=== PATIENT | male | born 1950 | race Caucasian/White ===

== ENCOUNTER → 2019-07-21 | Outpatient (CLI) | payer BC ==
[2016-09-13 15:25] VITALS: BP 132/68
[~2019-07-21] MED LIST: ALPR0.5T PO; ASPI-630 PO; BUPIVACAINE MPF 0.25% 10 ML VIAL. ONE; CITA10TA4 PO; CITA40TA12 PO; HYDR-2679 PO; IOHEXOL 180 MG/ML 10 ML VIAL. ONE; methylPREDNISolone ACETATE 80 MG/ML VIAL. ONE
--- NOTE | 2019-07-21 22:11 | PAIN ---
DATE OF SERVICE: 07/21/2019 INITIAL CONSULTATION FOR PAIN CLINIC CHIEF COMPLAINT: Low back and right lower extremity pain. HISTORY OF PRESENT ILLNESS: The patient is a 68-year-old male who presents with history of pain since about a year ago, worse over the past to 7 weeks; however, with pain in the low back itself, especially in the low back on the right side with some radiating pain in the right anterior thigh, also some pain in the posterior thigh and into the posterior calf with numbness in the foot, occasionally only with extended walking and standing. There is no pain with sitting. Lying down is generally comfortable, does not awaken him from sleep at night, does not affect his bowel or bladder control, but does affect his ability to walk fairly significantly. The patient reports he really "over does it." His foot will go numb on the right side as well as calf. The patient had a Medrol Dosepak earlier, which did decrease the pain by about 75% temporarily. The patient reports the pain now is sharp with numbness in the leg is noted, but mostly in the right side in the low back, posterior hip. The patient has had a total hip replacement on that side and his recent evaluation with his orthopedic surgeon showing good alignment and no issues with the hip prosthesis. The patient rates his disability rating from 0-10, 10 being the worst, is a 1 with family home responsibilities, 7 with recreation and 0 in all other categories. The patient did have plain films showing some degenerative change of the sacroiliac joint as well as the lumbar spine in the low lumbar distribution. PAST MEDICAL HISTORY: Significant for arthritis, chemotherapy and radiation, status post testicular cancer, now in remission, cigar smoking. Previous coronary artery disease with stent placed in 1990. OTHER SURGERIES: Include a right hip total replacement and a testicular cancer, orchiectomy. CURRENT MEDICATIONS: Include Xanax and daily baby aspirin. ALLERGIES: The patient has no known drug allergies. FAMILY HISTORY: Significant for heart disease and cancer. SOCIAL HISTORY: The patient does not drink alcohol, does not use any illegal, illicit or recreational drugs, does smoke cigars up to 6 a day at times. He is and lives with his spouse, lives locally in [place], [place] and reports he is currently retired. REVIEW OF SYSTEMS: The patient's review of systems is positive for those items mentioned in history of present illness. All systems reviewed and otherwise negative. It is complete, full and well documented on the patient's chart. PHYSICAL EXAMINATION: VITAL SIGNS: The patient's blood pressure is 152/81, pulse 74, respirations 18, temperature 98.0 degrees Fahrenheit, height 6 feet, weight is 169 pounds. GENERAL: The patient is awake, alert, oriented, appropriate, very pleasant demeanor. HEENT: Head shows normocephalic, atraumatic. Extraocular movements are intact and symmetrical. Oral cavity: Mucous membranes moist and pink. Dentition is intact. NECK: Shows anterior throat supple without palpable lymphadenopathy noted. Swallow reflex symmetrical. CHEST: Shows normal on inspection. Breath sounds clear to auscultation bilaterally. HEART: Shows S1, S2 clear. No murmurs auscultated. ABDOMEN: Soft, nontender, nondistended. No palpable organomegaly is noted. No rebound or guarding demonstrated. BACK: Shows spine grossly in the midline. Normal appearing thoracic kyphosis and lumbar lordotic curvature. Lumbar paraspinous muscle shows symmetrical on inspection, with palpation shows some moderate tenderness diffusely, but without radiation. The patient has good rotational motion of lumbar spine, both laterally as well as extension and flexion without significant difficulty. The patient's spinous processes is nontender with palpation. With palpation over the posterior superior iliac spine on the right, there is significantly tender, especially at the superior aspect of the sacroiliac joint on the right side only. Left side is nontender, but without radiation on either side. EXTREMITIES: The patient's lower extremities show deep tendon reflexes 2+ in the patellar, 1+ tendo-calcaneus tendons are equal. Motor exam is strong with 5/5 dorsiflexion, extension, quadriceps and hamstring flexion and symmetrical bilaterally as well. Peripheral pulses are 1+ posterior tibia. No peripheral edema is noted. Lower extremities are warm and dry to touch, equal in color and appearance. Straight leg raise noted to be negative for reproduction of radicular symptoms bilaterally. The patient is able to stand, stand on his toes without difficulty, walks with a normal appearing gait, does not appear to favor the right or left lower extremity to a significant extent. SKIN: Shows warm and dry, good turgor. No edema. No sores, rashes or bruising throughout. IMPRESSION: 1. This is a 68-year-old male with a year history of low back pain on the right side, worse over the past 6-7 weeks consistent with right sacroiliitis, also with some radicular symptoms while on the right side. 2. Plain films of the spine and hip as noted. 3. Coronary artery disease. 4. Arthritis. 5. History of testicular cancer. PLAN: Options were discussed with the patient including conservative medical management, physical therapies, interventional techniques and he would like to pursue interventional techniques. We discussed a right sacroiliac joint injection using description as well as anatomical models to describe the procedure. Risks were then discussed including, but not limited to bleeding, infection, possibility of intravascular injection sequelae, spread of local anesthetic and numbness, side effects of steroid medication, exposure to fluoroscopy and poor results regarding pain control. The patient understands and wished to proceed. The patient will return to clinic in approximately 2 weeks for followup. She was counseled on return appointment, activity level and side effects to be aware of. DIAGNOSES: Right sacroiliitis. PROCEDURE: Right sacroiliac joint injection under sterile prep and drape using local anesthetic with C-arm fluoroscopic guidance. MEDICATIONS INJECTED: A total of 80 mg Depo-Medrol plus a total of 3 mL of 0.25% bupivacaine and 2 mL of contrast. CONDITION AT DISCHARGE: Stable. The patient tolerated the procedure well, had no complications. ALINE NAIDU MD DR: ANTONINO/pernell JOB#: [id number] / [id number] LORI Salgado MD
== END ==
LOC: PNCL 12:42
PROVIDERS: ATTEND Anesthesiology
DX: M46.1 Sacroiliitis, not elsewhere classified (principal); I25.10 Atherosclerotic heart disease of native coronary artery without angina pectoris; F17.210 Nicotine dependence, cigarettes, uncomplicated; Z87.39 Personal history of other diseases of the musculoskeletal system and connective tissue; Z85.47 Personal history of malignant neoplasm of testis; Z95.5 Presence of coronary angioplasty implant and graft
CPT/HCPCS: G0260; J1040; J3490; Q9965; 27096

== ENCOUNTER → 2019-07-30 | Outpatient (CLI) | payer BC ==
[2016-09-13 15:25] VITALS: BP 132/68
[~2019-07-30] MED LIST changes: -BUPIVACAINE MPF 0.25% 10 ML VIAL. ONE; +methylPREDNISolone ACETATE 40 MG/ML VIAL. ONE
--- NOTE | 2019-07-30 14:02 | PAIN ---
DATE OF SERVICE: 07/30/2019 PROGRESS NOTE FOR PAIN CLINIC DIAGNOSES: 1. Lumbar radiculopathy with lumbar degenerative disk disease. 2. Right sacroiliitis. HISTORY OF PRESENT ILLNESS: The patient is a 68-year-old male who returns for followup status post right sacroiliac joint injection after initial evaluation. The patient reports no significant improvement after the last injection, still significant pain radiating to the right lower extremity in a radicular fashion, mostly in L5 dermatomal distribution. The patient reports it is worse with walking, standing, changing positions, describes the pain as tight across the back, cramping and radiating and shooting into the right leg. The patient reports it is an 8 on a scale of 10 at its worst over the past week, 8 on average, 7 at its least and is a 7 today. The patient reports no new motor or sensory deficits, no new bowel or bladder incontinence. Still awaken him from sleep at night. PHYSICAL EXAMINATION: VITAL SIGNS: The patient's blood pressure 151/87, pulse 85, respirations are 18, temperature 97.6 degrees Fahrenheit, height is 6 feet, weight is 168 pounds. GENERAL: The patient is awake, alert, oriented, appropriate, very pleasant demeanor. HEENT: Shows normocephalic, atraumatic. Extraocular movements are intact and symmetrical. Oral cavity: Mucous membranes moist and pink. Dentition is intact. NECK: Shows anterior throat supple without palpable lymphadenopathy noted. Swallow reflex symmetrical. CHEST: Shows normal on inspection. Breath sounds clear to auscultation bilaterally. HEART: Shows S1, S2 clear. No murmurs auscultated. ABDOMEN: Soft, nontender, nondistended. No palpable organomegaly is noted. There is no rebound or guarding demonstrated. BACK: Shows spine grossly in the midline. Normal appearing thoracic kyphosis and lumbar lordotic curvature. Lumbar paraspinous muscle shows symmetrical on inspection, on palpation shows some moderate tenderness diffusely, but only diffusely without significant radiation. EXTREMITIES: The patient's lower extremities show deep tendon reflexes 2+ in the patellar, 1+ in tendo-calcaneus tendons. Motor exam is strong with 5/5 dorsiflexion, extension, quadriceps and hamstring flexion symmetrical bilaterally. Peripheral pulses are 1+ posterior tibia. No peripheral edema is noted bilaterally. Options were discussed with the patient. The patient's old chart was reviewed as his current medication regimen updated. Current review of systems updated today as well. We will proceed with a lumbar epidural steroid injection today with fluoroscopic guidance. Risks were again discussed including, but not limited to bleeding, infection, possibility of epidural hematoma, subsequent neurological compromise, dural puncture, headaches, spinal cord and/or nerve damage, side effects of steroid medication and poor results regarding pain control. The patient understands and wished to proceed. The patient will return to clinic in approximately 2 weeks for followup. He was counseled on return appointment, activity level and side effects to be aware of. DIAGNOSES: Lumbar radiculopathy with lumbar degenerative disk disease. PROCEDURE: Lumbar epidural steroid injection, translaminar approach L5-S1 level using C-arm fluoroscopic guidance under sterile prep and drape using local anesthetic. MEDICATION INJECTED: A total of 120 mg of Depo-Medrol plus 10 mL of preservative-free normal saline and 2 mL of contrast. CONDITION AT DISCHARGE: Stable. The patient tolerated the procedure well, had no complications. ALINE NAIDU MD DR: ANTONINO/pernell JOB#: [id number] / [id number]
== END ==
LOC: PNCL 13:04
PROVIDERS: ATTEND Anesthesiology
DX: M51.16 Intervertebral disc disorders with radiculopathy, lumbar region (principal); M46.1 Sacroiliitis, not elsewhere classified
CPT/HCPCS: 62323; J1030; J1040; Q9965

== ENCOUNTER → 2019-08-14 | Outpatient (CLI) | payer BC ==
[2016-09-13 15:25] VITALS: BP 132/68
[~2019-08-14] MED LIST changes: +ASPI81TA50 PO; -IOHEXOL 180 MG/ML 10 ML VIAL. ONE; -methylPREDNISolone ACETATE 40 MG/ML VIAL. ONE; -methylPREDNISolone ACETATE 80 MG/ML VIAL. ONE
--- NOTE | 2019-08-14 12:50 | KCIC ---
Right lower extremity venous duplex ultrasound study without comparison for right lower extremity swelling and pain. TECHNIQUE AND FINDINGS: Real-time grayscale and color and spectral Doppler evaluation of the veins of the right lower extremity is performed. The right common femoral, deep femoral, superficial femoral, and popliteal veins all demonstrate normal compressibility and augmentation with normal color flow. There is normal color flow within the posterior tibial veins. Peroneal veins are not well seen. Short saphenous vein is patent and compressible. IMPRESSION: 1. No evidence of deep vein thrombosis of the right lower extremity. Electronically signed by: Oswaldo Wright MD (08/14/2019 12:47 PM) [facility]
== END | disposition home or self-care (01) ==
LOC: KCIC US 12:01
PROVIDERS: ATTEND Family Medicine
DX: M79.604 Pain in right leg (principal); M79.89 Other specified soft tissue disorders
CPT/HCPCS: 93971

== ENCOUNTER → 2019-08-18 | Outpatient (CLI) | payer BC ==
[2016-09-13 15:25] VITALS: BP 132/68
--- NOTE | 2019-08-18 20:58 | PAIN ---
DATE OF SERVICE: 08/18/2019 PROGRESS NOTE FOR PAIN CLINIC DIAGNOSES: 1. Lumbar radiculopathy with lumbar degenerative disk disease. 2. Right sacroiliitis. HISTORY OF PRESENT ILLNESS: The patient is a 68-year-old male who returns for followup status post lumbar epidural steroid injection x 1 and right sacroiliac joint injection x 1. The patient reports no significant improvement with either of these, only minimal decrease in pain. The patient reports still significant pain in the right leg with walking, gets worse with walking and extended activity and once he sits down and rests, it is gone within 2 minutes. The patient reports his leg has been turning red in the medial thigh as well as in the medial lower leg and calf. He had recently had a venous ultrasound of his calf showing no blood clots, it was quite tender. When his primary care physician examined it about 2 weeks ago, the patient reports his pain is 7 on a scale of 10 at its worst, average and at its least and is a 7 today in the right lower extremity, some in the low back as well. The patient reports it does not awaken him from sleep at night. He is sleeping well. Only with activities, has the pain significant and again with some reddish color on the anterior medial thigh and the medial lower leg. PHYSICAL EXAMINATION: VITAL SIGNS: The patient's blood pressure is 129/81, pulse 93, respirations 18, temperature is 97.5 degrees Fahrenheit, weight is 167 pounds. Height is 6 feet. GENERAL: The patient is awake, alert, oriented, appropriate, very pleasant demeanor. HEENT: Shows normocephalic, atraumatic. Extraocular movements are intact and symmetrical. Oral cavity: Mucous membranes moist and pink. Dentition intact. NECK: Shows anterior throat supple without palpable lymphadenopathy noted. Swallow reflex symmetrical. CHEST: Shows normal on inspection. Breath sounds are clear bilaterally. HEART: Shows S1, S2 clear. No murmurs auscultated. ABDOMEN: Soft, nontender, nondistended. BACK: Shows spine grossly in the midline. Normal appearing thoracic kyphosis. Lumbar lordotic curvature is slightly flattened. Lumbar paraspinous muscle shows symmetrical on inspection with some moderate tenderness diffusely in the low lumbar distribution bilaterally, but more on the right than the left, but without asymmetry. The patient has good rotational motion of lumbar spine, both laterally as well as extension and flexion without difficulty. EXTREMITIES: Lower extremities show deep tendon reflexes 2+ in the patellar, 1+ tendo-calcaneus tendons. Motor exam is strong with 5/5 dorsiflexion, extension and equal bilaterally. Examination of the patient's peripheral pulses show no palpable pulse on the right posterior tibial or dorsalis pedis or popliteal region in the right. Left side shows good 2+ popliteal pulse as well as 1+ posterior tibial and dorsalis pedis pulses. No peripheral edema is noted. No significant discoloration is appreciated underneath though lower extremities are warm and dry to touch, equal in color and appearance. PLAN: Options were discussed with the patient. The patient's old chart was reviewed as his current medication regimen updated. Current review of systems updated today as well. We will have the patient scheduled for ultrasound of the arterial system of the lower extremities as he apparently by history and examination is having vascular claudication of the right lower extremity. The patient understands and agrees. We will schedule arterial evaluation of the bilateral lower extremities and wait for those results. In the meantime, the patient will maintain exercise as tolerated and will follow up after an arterial ultrasound of the lower complications. ALINE NAIDU MD DR: ANTONINO/pernell JOB#: [id number] / [id number]
== END | disposition home or self-care (01) ==
LOC: PNCL 13:10
PROVIDERS: ATTEND Anesthesiology
DX: M51.16 Intervertebral disc disorders with radiculopathy, lumbar region (principal); M46.1 Sacroiliitis, not elsewhere classified
CPT/HCPCS: G0463

== ENCOUNTER 2019-08-20 04:37 | Inpatient (IN) | payer BC ==
[~2019-08-20] VITALS: Ht 182.9 cm; Wt 78.0 kg
[2019-08-20 05:12] LABS: BASO # 0.1 x10^3/uL (0.0-0.2); BASO % 1 % (0-3); EOS # 0.2 x10^3/uL (0.0-0.7); EOS % 3 % (0-3); HEMATOCRIT 46.6 % (39.0-53.0); HEMOGLOBIN 16.4 g/dL (13.0-17.5); LYMPH # 1.8 x10^3/uL (1.0-4.8); LYMPH % 23 % (24-48); MEAN CORPUSCULAR HEMOGLOBIN 35 pg (25-35); MEAN CORPUSCULAR HGB CONC 35 g/dL (31-37); MEAN CORPUSCULAR VOLUME 100 fL (79-100); MONO # 0.7 x10^3/uL (0.0-1.1); MONO % 8 % (0-9); NEUT # 5.2 x10^3/uL (1.8-7.7); NEUT % 65 % (31-73); PLATELET COUNT 180 x10^3/uL (140-400); RED BLOOD COUNT 4.65 x10^6/uL (4.30-5.70); RED CELL DISTRIBUTION WIDTH 14.5 % (11.5-14.5)
[2019-08-20 05:18] LABS: CREATININE 1.1 mg/dL (0.7-1.3); POTASSIUM 3.7 mmol/L (3.5-5.1)
[2019-08-20 05:23] LABS: ALBUMIN 3.7 g/dL (3.4-5.0); ALBUMIN/GLOBULIN RATIO 1.1 (1.0-1.7); TOTAL BILIRUBIN 0.6 mg/dL (0.2-1.0); TOTAL PROTEIN 7.1 g/dL (6.4-8.2)
[2019-08-20 05:26] LABS: PROTHROMBIN TIME PATIENT 12.9 SEC (11.7-14.0)
[2019-08-20] MEDS ORDERED: ASPIRIN CHEWABLE 81 MG TABLET. PO ONE (05:30)
[2019-08-20] MEDS ORDERED: hydrALAZINE 20 MG/ML VIAL. IVP ONE (05:30)
--- NOTE | 2019-08-20 05:34 | PHYS DOC ---
Past Medical History Past Medical History: No Pertinent History (VAN CHAPA DO) Past Surgical History: Other Additional Past Surgical Histo: PTCA (VAN CHAPA DO) Alcohol Use: None Drug Use: None (VAN CHAPA DO) Adult General Chief Complaint Chief Complaint: CHEST PAIN HPI HPI Patient is a 68 year old male who presents with family to the ER with a chief complaint of left-sided chest pain. Patient describes the pain is in his left lower chest. Patient states that this woke him up around 2 hours prior to coming into the ER. Patient does admit to being an active smoker. Patient states that he did not have a cardiac evaluation for the past few years. Patient denies any radiation to his chest pain. Patient describes the pain as dull and achy. (VAN CHAPA DO) Review of Systems Review of Systems Constitutional: Denies fever or chills [] Eyes: Denies change in visual acuity, redness, or eye pain [] HENT: Denies nasal congestion or sore throat [] Respiratory: Denies cough or shortness of breath [] Cardiovascular: Complains of left-sided chest pain GI: Denies abdominal pain, nausea, vomiting, bloody stools or diarrhea [] : Denies dysuria or hematuria [] Musculoskeletal: Denies back pain or joint pain [] Integument: Denies rash or skin lesions [] Neurologic: Denies headache, focal weakness or sensory changes [] All other systems were reviewed and found to be within normal limits, except as documented in this note. (VAN CHAPA DO) Current Medications Current Medications Current Medications Medications (Trade) Dose Ordered Sig/Mady Start Time Stop Time Status Last Admin Dose Admin Aspirin (Children'S Aspirin) 324 mg 1X ONCE 08/20/19 05:30 08/20/19 05:31 DC 08/20/19 05:14 324 MG Hydralazine HCl (Apresoline Inj) 10 mg 1X ONCE 08/20/19 05:30 08/20/19 05:31 DC 08/20/19 05:28 10 MG Info (CONTRAST GIVEN -- Rx MONITORING) 1 each PRN DAILY PRN 08/20/19 06:00 08/22/19 05:59 Iohexol (Omnipaque 300 Mg/ml) 75 ml 1X ONCE 08/20/19 06:00 08/20/19 06:01 DC 08/20/19 05:55 75 ML (SETH RICHMOND Jr., DO) Allergies Allergies Allergies Coded Allergies Type Severity Reaction Last Updated Verified No Known Drug Allergies 09/11/16 No (SETH RICHMOND Jr., DO) Physical Exam Physical Exam Constitutional: Well developed, well nourished, no acute distress, non-toxic appearance. [] HENT: Normocephalic, atraumatic Eyes: PERRLA, EOMI Neck: Normal range of motion, no tenderness, supple, no stridor. [] Cardiovascular:Heart rate regular rhythm, no murmur [] Lungs & Thorax: Bilateral breath sounds clear to auscultation [] Abdomen: Bowel sounds normal, soft, no tenderness Skin: Warm, dry, no erythema, no rash. [] Back: No tenderness, no CVA tenderness. [] Extremities: No tenderness, no cyanosis, no clubbing, ROM intact Neurologic: Alert and oriented X 3, normal motor function, normal sensory function, no focal deficits noted. [] Psychologic: Affect normal, judgement normal, mood normal. [] (VAN CHAPA DO) Current Patient Data Vital Signs Vital Signs Date Time Temp Pulse Resp B/P (MAP) Pulse Ox O2 Delivery O2 Flow Rate FiO2 08/20/19 06:01 72 23 163/78 (106) 94 Room Air (SETH RICHMOND Jr., DO) Lab Values Laboratory Tests Test 08/20/19 04:50 White Blood Count 8.0 x10^3/uL (4.0-11.0) Red Blood Count 4.65 x10^6/uL (4.30-5.70) Hemoglobin 16.4 g/dL (13.0-17.5) Hematocrit 46.6 % (39.0-53.0) Mean Corpuscular Volume 100 fL (79-100) Mean Corpuscular Hemoglobin 35 pg (25-35) Mean Corpuscular Hemoglobin Concent 35 g/dL (31-37) Red Cell Distribution Width 14.5 % (11.5-14.5) Platelet Count 180 x10^3/uL (140-400) Neutrophils (%) (Auto) 65 % (31-73) Lymphocytes (%) (Auto) 23 % (24-48) L Monocytes (%) (Auto) 8 % (0-9) Eosinophils (%) (Auto) 3 % (0-3) Basophils (%) (Auto) 1 % (0-3) Neutrophils # (Auto) 5.2 x10^3/uL (1.8-7.7) Lymphocytes # (Auto) 1.8 x10^3/uL (1.0-4.8) Monocytes # (Auto) 0.7 x10^3/uL (0.0-1.1) Eosinophils # (Auto) 0.2 x10^3/uL (0.0-0.7) Basophils # (Auto) 0.1 x10^3/uL (0.0-0.2) Prothrombin Time 12.9 SEC (11.7-14.0) Prothrombin Time INR 1.0 (0.8-1.1) Sodium Level 143 mmol/L (136-145) Potassium Level 3.7 mmol/L (3.5-5.1) Chloride Level 108 mmol/L (98-107) H Carbon Dioxide Level 29 mmol/L (21-32) Anion Gap 6 (6-14) Blood Urea Nitrogen 23 mg/dL (8-26) Creatinine 1.1 mg/dL (0.7-1.3) Estimated GFR (Cockcroft-Gault) 67.0 BUN/Creatinine Ratio 21 (6-20) H Glucose Level 112 mg/dL (70-99) H Calcium Level 9.0 mg/dL (8.5-10.1) Total Bilirubin 0.6 mg/dL (0.2-1.0) Aspartate Amino Transferase (AST) 27 U/L (15-37) Alanine Aminotransferase (ALT) 38 U/L (16-63) Alkaline Phosphatase 106 U/L (46-116) Troponin I Quantitative < 0.017 ng/mL (0.000-0.055) OJ-Lmf-K-Type Natriuretic Peptide 378 pg/mL (0-124) H Total Protein 7.1 g/dL (6.4-8.2) Albumin 3.7 g/dL (3.4-5.0) Albumin/Globulin Ratio 1.1 (1.0-1.7) Lipase 1018 U/L (73-393) H Laboratory Tests 08/20/19 04:50 Laboratory Tests 08/20/19 04:50 (SETH RICHMOND Jr., DO) EKG EKG EKG interpretation: HR: 90 Sinus rhythm Regular intervals Normal axis Non specific ST changes most notably in the lateral leads V3 V4 and V5. (VAN CHAPA DO) Radiology/Procedures Radiology/Procedures Ordered chest x-ray. Ordered CT abdomen and pelvis with IV contrast (VAN CHAPA DO) Radiology/Procedures PROCEDURE: CT ABD PELV W/ IV CONTRST ONLY PQRS Compliance statement: One or more of the following individualized dose reduction techniques were utilized for this examination: 1. Automated exposure control. 2. Adjustment of the mA and/or kV according to patient size. 3. Use of iterative reconstruction technique. Indication:Elevated lipase. Abdominal pain. TECHNIQUE: CT abdomen and pelvis with IV contrast with multiplanar reformats. COMPARISON: None FINDINGS: Heart is normal in size. No pericardial or pleural effusion. Clear lung bases. Too small to characterize low attenuating lesion in segment 7 likely simple cysts. Spleen, gallbladder, pancreas, adrenals within normal limits. Large simple cyst in the left kidney measuring 8.7 cm. 4.6 x 3.9 cm partially exophytic enhancing solid lesion in the right kidney. Nonobstructing 3 mm left renal stone. No free pelvic fluid or ascites. No enlarged retroperitoneal or pelvic adenopathy. Infrarenal abdominal aortic aneurysm measuring 3.4 cm with thick eccentric mural plaque. The prostate and seminal vesicles show no large mass. Sigmoid diverticulosis. No bowel obstruction. No suspicious bony lesion. No suspicious bony lesion. IMPRESSION: 1. No pancreatic or peripancreatic inflammatory changes. 2. Punctate nonobstructing left renal stone. 3. Right renal mass, renal cell carcinoma until proven otherwise. 4. Infrarenal abdominal aortic aneurysm. Electronically signed by: Jayesh Barros DO (08/20/2019 6:11 AM) [facility] DICTATED and SIGNED BY: JAYESH BARROS DO DATE: 08/20/19610 (SETH RICHMOND Jr., DO) Impressions: 6 x-ray shows no acute disease. (VAN CHAPA DO) Course & Med Decision Making Course & Med Decision Making Pertinent Labs and Imaging studies reviewed. (See chart for details) Ordered labs, chest x-ray, EKG, IV, aspirin EKG does not show any acute changes. Chest x-ray does not show any acute disease. Labs are within normal limits except lipase which is 1018. Ordered CT of the abdomen and pelvis with IV contrast Patient's blood pressures elevated and so he is given hydralazine 10 mg IV. Patient care turned over to Dr Richmond at shift change. Pt will be admitted. Chest Pain vs Pancreatitis. (SAMMIVAN José Antonio CHAPMAN) Dragon Disclaimer Dragon Disclaimer This electronic medical record was generated, in whole or in part, using a voice recognition dictation system. (SAMMIVANWERNER Chou DO) Departure Departure Impression: Primary Impression: Chest pain Additional Impressions: Pancreatitis Right renal mass Disposition: ADMITTED INPATIENT Admitting Physician: Rajesh Koehler (SETH RICHMOND Jr. DO) Condition: IMPROVED Referrals: RAJESH KOEHLER MD (PCP) Problem Qualifiers Primary Impression: Chest pain Chest pain type: unspecified Qualified Codes: R07.9 - Chest pain, unspecified Additional Impressions: Pancreatitis Chronicity: acute Pancreatitis type: unspecified pancreatitis type Acute pancreatitis complication: unspecified Qualified Codes: K85.90 - Acute pancreatitis without necrosis or infection, unspecified VAN CHAPA DO Aug 20, 2019 05:34 SETH RICHMOND Jr., DO Aug 20, 2019 06:30
--- NOTE | 2019-08-20 05:36 | RAD ---
PROCEDURE: PORTABLE CHEST 1V CLINICAL INDICATION: Chest pain. COMPARISON: None FINDINGS: No pneumothorax identified. Cardiac and mediastinal contours unremarkable. No pulmonary consolidation or acute airspace disease. No acute osseous abnormalities identified. IMPRESSION: No pulmonary consolidation or acute airspace disease. Electronically signed by: Jayesh Barros DO (08/20/2019 5:33 AM) [facility]
[2019-08-20] MEDS ORDERED: CONTRAST GIVEN. MC PRN (06:00)
[2019-08-20] MEDS ORDERED: IOHEXOL 300 MG/ML 100ML VIAL. IV ONE (06:00)
--- NOTE | 2019-08-20 06:14 | RAD ---
PQRS Compliance statement: One or more of the following individualized dose reduction techniques were utilized for this examination: 1. Automated exposure control. 2. Adjustment of the mA and/or kV according to patient size. 3. Use of iterative reconstruction technique. Indication:Elevated lipase. Abdominal pain. TECHNIQUE: CT abdomen and pelvis with IV contrast with multiplanar reformats. COMPARISON: None FINDINGS: Heart is normal in size. No pericardial or pleural effusion. Clear lung bases. Too small to characterize low attenuating lesion in segment 7 likely simple cysts. Spleen, gallbladder, pancreas, adrenals within normal limits. Large simple cyst in the left kidney measuring 8.7 cm. 4.6 x 3.9 cm partially exophytic enhancing solid lesion in the right kidney. Nonobstructing 3 mm left renal stone. No free pelvic fluid or ascites. No enlarged retroperitoneal or pelvic adenopathy. Infrarenal abdominal aortic aneurysm measuring 3.4 cm with thick eccentric mural plaque. The prostate and seminal vesicles show no large mass. Sigmoid diverticulosis. No bowel obstruction. No suspicious bony lesion. No suspicious bony lesion. IMPRESSION: 1. No pancreatic or peripancreatic inflammatory changes. 2. Punctate nonobstructing left renal stone. 3. Right renal mass, renal cell carcinoma until proven otherwise. 4. Infrarenal abdominal aortic aneurysm. Electronically signed by: Jayesh Barros DO (08/20/2019 6:11 AM) [id number]
[2019-08-20 06:41] LABS: BILIRUBIN,URINE NEGATIVE (NEG); CLARITY,URINE CLEAR; COLOR,URINE YELLOW; NITRITE,URINE NEGATIVE (NEG); PROTEIN,URINE NEGATIVE (NEG-TRACE); UROBILINOGEN,URINE 0.2 mg/dL (0.2 mg/dL)
[2019-08-20] MEDS ORDERED: MORPHINE SULFATE 2 MG/ML VIAL. IV PRN (06:45)
[2019-08-20] MEDS ORDERED: ONDANSETRON PF 4 MG/2 ML VIAL. IV PRN (06:45)
[2019-08-20 06:53] LABS: BACTERIA,URINE 0 /HPF (0-FEW); RBC,URINE 0 /HPF (0-2); SQUAMOUS EPITHELIAL CELL,UR OCC /LPF; WBC,URINE 0 /HPF (0-4)
--- NOTE | 2019-08-20 06:53 | EKG ---
[address] [place] [address] Test Date: 2019-08-20 Test Time: 04:40:29 Pat Name: KAYCE PALOMINO Department: Room: Gender: M Turn Down Man: : 1950 Requested By: VAN CHAPA Order Number: [id number] Reading MD: Sandip Leong MD Measurements Intervals [place] Rate: 89 P: 59 OR: 158 QRS: 80 QRSD: 108 T: 65 QT: 364 QTc: 449 Interpretive Statements SINUS RHYTHM Electronically Signed On 09-07-2019 8:14:34 INSPECTOR CONVEYOR LINE by Sandip Leong MD
[2019-08-20] MEDS ORDERED: IV NORMAL SALINE 1000ML BAG 1,000 ML IV SCH (07:00)
[2019-08-20 08:00] VITALS: BP 218/101
[2019-08-20] MEDS ORDERED: HYDROcodone/APAP 7.5/325MG 1 TAB TABLET PO PRN (08:15)
[2019-08-20] MEDS ORDERED: hydrALAZINE 20 MG/ML VIAL. IVP PRN (08:45)
--- NOTE | 2019-08-20 08:47 | PDOC1 ---
History and Physical Date of Admission Date of Admission 08/20/19 Identification/Chief Complaint Chief Complaint chest pain Source Source: Chart review, Patient History of Present Illness History of Present Illness He came in due to left sided chest pain, has a CAD hx with stent placement yrs ago by Dr. Ernst, found to be hypertensive but EKG, troponin unremarkable, lipase elevated but not tender in area of pancreas and CT imaging did not show pancreatic issues but did not what is likely a renal cell cancer and an infrarenal aneurysm. He has been in to see Dr. De Dios recently for back/right leg pain and has arterial flow study set up as OP of right leg Past Medical History Cardiovascular: CAD, HTN, [place], Hyperlipidemia Pulmonary: Bronchitis GI: GERD Heme/Onc: Cancer Hepatobiliary: No pertinent hx Psych: Anxiety, Depression Rheumatologic: Other (OA) Renal/: Prostate Ca. (cancer) Past Surgical History Past Surgical History: Total hip replacement, Other (orchiectomy) Social History Smoke: <1 pack per day ALCOHOL: none Drugs: None Current Problem List Problem List Problems Medical Problems: (1) Chest pain Status: Acute (2) Pancreatitis Status: Acute (3) Right renal mass Status: Acute Current Medications Current Medications Current Medications Medications (Trade) Dose Ordered Sig/Mady Start Time Stop Time Status Last Admin Dose Admin Acetaminophen/ Hydrocodone Bitart (Lortab 7.5/325) 1 tab PRN Q6HRS PRN 08/20/19 08:15 Alprazolam (Xanax) 0.5 mg QID 08/20/19 09:00 Aspirin (Children'S Aspirin) 324 mg 1X ONCE 08/20/19 05:30 08/20/19 05:31 DC 08/20/19 05:14 324 MG Aspirin (Ecotrin) 162 mg DAILY 08/20/19 09:00 Citalopram Hydrobromide (CeleXA) 40 mg DAILY 08/20/19 09:00 Hydralazine HCl (Apresoline Inj) 10 mg 1X ONCE 08/20/19 05:30 08/20/19 05:31 DC 08/20/19 05:28 10 MG Info (CONTRAST GIVEN -- Rx MONITORING) 1 each PRN DAILY PRN 08/20/19 06:00 08/22/19 05:59 Iohexol (Omnipaque 300 Mg/ml) 75 ml 1X ONCE 08/20/19 06:00 08/20/19 06:01 DC 08/20/19 05:55 75 ML Morphine Sulfate (Morphine Sulfate) 2 mg PRN Q2HR PRN 08/20/19 06:45 08/21/19 06:44 Ondansetron HCl (Zofran) 4 mg PRN Q8HRS PRN 08/20/19 06:45 08/21/19 06:44 Sodium Chloride 1,000 ml @ 125 mls/hr Q8H 08/20/19 07:00 08/21/19 06:59 Allergies Allergies Allergies Coded Allergies Type Severity Reaction Last Updated Verified No Known Drug Allergies 09/11/16 No ROS Review of System CONSTITUTIONAL: No fever or chills EYES: No recent changes SKIN: No rash or itching CARDIOVASCULAR: see HPI RESPIRATORY: No SOB or cough GASTROINTESTINAL: No nausea, vomiting or abdominal pain NEUROLOGICAL: No headaches or weakness ENDOCRINE: No cold or heat intolerance GENITOURINARY: No urgency or frequency of urination MUSCULOSKELETAL: + back pain and right hip joint/leg pain LYMPHATICS: No enlarged lymph nodes PSYCHIATRIC: controlled anxiety & depression Physical Exam Physical Exam GEN.: No apparent distress. Alert and oriented. HEENT: Head is normocephalic, atraumatic NECK: Supple. LUNGS: Clear to auscultation. HEART: RRR, S1, S2 present. Peripheral pulses diminished right foot ABDOMEN: Soft, nontender. Positive bowel sounds. EXTREMITIES: Without any cyanosis. NEUROLOGIC: Normal speech, normal tone PSYCHIATRIC: Normal affect, normal mood. SKIN: No ulcerations Vitals Vitals Vital Signs Date Time Temp Pulse Resp B/P (MAP) Pulse Ox O2 Delivery O2 Flow Rate FiO2 08/20/19 08:00 74 20 218/101 (140) 96 Room Air Labs Labs Laboratory Tests Test 08/20/19 04:50 08/20/19 06:30 White Blood Count 8.0 x10^3/uL (4.0-11.0) Red Blood Count 4.65 x10^6/uL (4.30-5.70) Hemoglobin 16.4 g/dL (13.0-17.5) Hematocrit 46.6 % (39.0-53.0) Mean Corpuscular Volume 100 fL (79-100) Mean Corpuscular Hemoglobin 35 pg (25-35) Mean Corpuscular Hemoglobin Concent 35 g/dL (31-37) Red Cell Distribution Width 14.5 % (11.5-14.5) Platelet Count 180 x10^3/uL (140-400) Neutrophils (%) (Auto) 65 % (31-73) Lymphocytes (%) (Auto) 23 % (24-48) Monocytes (%) (Auto) 8 % (0-9) Eosinophils (%) (Auto) 3 % (0-3) Basophils (%) (Auto) 1 % (0-3) Neutrophils # (Auto) 5.2 x10^3/uL (1.8-7.7) Lymphocytes # (Auto) 1.8 x10^3/uL (1.0-4.8) Monocytes # (Auto) 0.7 x10^3/uL (0.0-1.1) Eosinophils # (Auto) 0.2 x10^3/uL (0.0-0.7) Basophils # (Auto) 0.1 x10^3/uL (0.0-0.2) Prothrombin Time 12.9 SEC (11.7-14.0) Prothromb Time International Ratio 1.0 (0.8-1.1) Sodium Level 143 mmol/L (136-145) Potassium Level 3.7 mmol/L (3.5-5.1) Chloride Level 108 mmol/L (98-107) Carbon Dioxide Level 29 mmol/L (21-32) Anion Gap 6 (6-14) Blood Urea Nitrogen 23 mg/dL (8-26) Creatinine 1.1 mg/dL (0.7-1.3) Estimated GFR (Cockcroft-Gault) 67.0 BUN/Creatinine Ratio 21 (6-20) Glucose Level 112 mg/dL (70-99) Calcium Level 9.0 mg/dL (8.5-10.1) Total Bilirubin 0.6 mg/dL (0.2-1.0) Aspartate Amino Transf (AST/SGOT) 27 U/L (15-37) Alanine Aminotransferase (ALT/SGPT) 38 U/L (16-63) Alkaline Phosphatase 106 U/L (46-116) Troponin I Quantitative < 0.017 ng/mL (0.000-0.055) MZ-Sko-N-Type Natriuretic Peptide 378 pg/mL (0-124) Total Protein 7.1 g/dL (6.4-8.2) Albumin 3.7 g/dL (3.4-5.0) Albumin/Globulin Ratio 1.1 (1.0-1.7) Lipase 1018 U/L (73-393) Urine Collection Type Unknown Urine Color Yellow Urine Clarity Clear Urine pH 6.0 Urine Specific [place] 1.025 Urine Protein Negative mg/dL (NEG-TRACE) Urine Glucose (UA) Negative mg/dL (NEG) Urine Ketones (Stick) Negative mg/dL (NEG) Urine Blood Negative (NEG) Urine Nitrite Negative (NEG) Urine Bilirubin Negative (NEG) Urine Urobilinogen Dipstick 0.2 mg/dL (0.2 mg/dL) Urine Leukocyte Esterase Negative (NEG) Urine RBC 0 /HPF (0-2) Urine WBC 0 /HPF (0-4) Urine Squamous Epithelial Cells Occ /LPF Urine Bacteria 0 /HPF (0-FEW) Laboratory Tests Test 08/20/19 04:50 08/20/19 06:30 White Blood Count 8.0 x10^3/uL (4.0-11.0) Red Blood Count 4.65 x10^6/uL (4.30-5.70) Hemoglobin 16.4 g/dL (13.0-17.5) Hematocrit 46.6 % (39.0-53.0) Mean Corpuscular Volume 100 fL (79-100) Mean Corpuscular Hemoglobin 35 pg (25-35) Mean Corpuscular Hemoglobin Concent 35 g/dL (31-37) Red Cell Distribution Width 14.5 % (11.5-14.5) Platelet Count 180 x10^3/uL (140-400) Neutrophils (%) (Auto) 65 % (31-73) Lymphocytes (%) (Auto) 23 % (24-48) Monocytes (%) (Auto) 8 % (0-9) Eosinophils (%) (Auto) 3 % (0-3) Basophils (%) (Auto) 1 % (0-3) Neutrophils # (Auto) 5.2 x10^3/uL (1.8-7.7) Lymphocytes # (Auto) 1.8 x10^3/uL (1.0-4.8) Monocytes # (Auto) 0.7 x10^3/uL (0.0-1.1) Eosinophils # (Auto) 0.2 x10^3/uL (0.0-0.7) Basophils # (Auto) 0.1 x10^3/uL (0.0-0.2) Prothrombin Time 12.9 SEC (11.7-14.0) Prothromb Time International Ratio 1.0 (0.8-1.1) Sodium Level 143 mmol/L (136-145) Potassium Level 3.7 mmol/L (3.5-5.1) Chloride Level 108 mmol/L (98-107) Carbon Dioxide Level 29 mmol/L (21-32) Anion Gap 6 (6-14) Blood Urea Nitrogen 23 mg/dL (8-26) Creatinine 1.1 mg/dL (0.7-1.3) Estimated GFR (Cockcroft-Gault) 67.0 BUN/Creatinine Ratio 21 (6-20) Glucose Level 112 mg/dL (70-99) Calcium Level 9.0 mg/dL (8.5-10.1) Total Bilirubin 0.6 mg/dL (0.2-1.0) Aspartate Amino Transf (AST/SGOT) 27 U/L (15-37) Alanine Aminotransferase (ALT/SGPT) 38 U/L (16-63) Alkaline Phosphatase 106 U/L (46-116) Troponin I Quantitative < 0.017 ng/mL (0.000-0.055) FW-Lwy-C-Type Natriuretic Peptide 378 pg/mL (0-124) Total Protein 7.1 g/dL (6.4-8.2) Albumin 3.7 g/dL (3.4-5.0) Albumin/Globulin Ratio 1.1 (1.0-1.7) Lipase 1018 U/L (73-393) Urine Collection Type Unknown Urine Color Yellow Urine Clarity Clear Urine pH 6.0 Urine Specific [place] 1.025 Urine Protein Negative mg/dL (NEG-TRACE) Urine Glucose (UA) Negative mg/dL (NEG) Urine Ketones (Stick) Negative mg/dL (NEG) Urine Blood Negative (NEG) Urine Nitrite Negative (NEG) Urine Bilirubin Negative (NEG) Urine Urobilinogen Dipstick 0.2 mg/dL (0.2 mg/dL) Urine Leukocyte Esterase Negative (NEG) Urine RBC 0 /HPF (0-2) Urine WBC 0 /HPF (0-4) Urine Squamous Epithelial Cells Occ /LPF Urine Bacteria 0 /HPF (0-FEW) Images Images CT abd/pelvis: Indication:Elevated lipase. Abdominal pain. TECHNIQUE: CT abdomen and pelvis with IV contrast with multiplanar reformats. COMPARISON: None FINDINGS: Heart is normal in size. No pericardial or pleural effusion. Clear lung bases. Too small to characterize low attenuating lesion in segment 7 likely simple cysts. Spleen, gallbladder, pancreas, adrenals within normal limits. Large simple cyst in the left kidney measuring 8.7 cm. 4.6 x 3.9 cm partially exophytic enhancing solid lesion in the right kidney. Nonobstructing 3 mm left renal stone. No free pelvic fluid or ascites. No enlarged retroperitoneal or pelvic adenopathy. Infrarenal abdominal aortic aneurysm measuring 3.4 cm with thick eccentric mural plaque. The prostate and seminal vesicles show no large mass. Sigmoid diverticulosis. No bowel obstruction. No suspicious bony lesion. No suspicious bony lesion. IMPRESSION: 1. No pancreatic or peripancreatic inflammatory changes. 2. Punctate nonobstructing left renal stone. 3. Right renal mass, renal cell carcinoma until proven otherwise. 4. Infrarenal abdominal aortic aneurysm. VTE Prophylaxis Ordered VTE Prophylaxis Devices: Yes VTE Pharmacological Prophylaxi: No Assessment/Plan Assessment/Plan chest pain - likely demand ischemia from hypertensive crisis - cardiology to see right renal mass - IR to eval for bx infrarenal aneurysm of abdominal aorta 3.4 cm - vascular to eval [facility] [place] 1990 with stent - previously followed by Dr. Ernst remote hx of testicular cancer, orchiectomy 30+ pack yr smoking hx abnormal lipase with normal pancreas on imaging and no palpable tenderness right leg pain with diminished pulse -arterial doppler was ordered as OP from recent office visit for 08/12/19 but apparently not done, recent venous doppler negative hx hyperlipidemia - not currently on meds, recheck FLP FARIDA/Depression hx - continue home meds Elizabeth CAIN MD Aug 20, 2019 08:47
[2019-08-20] MEDS: ASPIRIN ENTERIC COATED 81 MG TABLET.DR. PO SCH (09:00)
[2019-08-20] MEDS ORDERED: FLU VAX QS 2019-20 (36MOS+)/PF 0.5 ML SYRINGE. VAX IM ONE (09:00)
--- NOTE | 2019-08-20 09:17 | PDOC2 ---
CARDIAC CONSULT DATE OF CONSULT Date of Consult DATE: 08/20/19 TIME: 09:07 REASON FOR CONSULT Reason for Consult: Chest pain REFERRING PHYSICIAN Referring Physician: Basilio SOURCE Source: Chart review, Patient HISTORY OF PRESENT ILLNESS HISTORY OF PRESENT ILLNESS This is a pleasant 68 yo male admitted for complains of chest pain. He could not sleep last night due to pain. He described this as achy to left chest witho ut any associated symptoms of nausea/vomiting or SOA. No palpitations, frequent dizziness, PEGUERO. Denies any abdominal pain but has been having pain to his right leg mainly with walking. No hx of back issues. No recent falls or injury. Denies any frequent dizziness or passing out. Upon admission his BP was significantly high. He is known for CAD with remote PTCA and takes ASA but denies any BP meds. Denies any hx of renal disease. PAST MEDICAL HISTORY Cardiovascular: CAD Heme/Onc: Cancer (testicular) Psych: Anxiety, Depression Musculoskeletal: Osteoarthritis PAST SURGICAL HISTORY Past Surgical History: Total hip replacement, Other (orchiectomy) FAMILY HISTORY Family History noncontributory to CV SOCIAL HISTORY Smoke: <1 pack per day ALCOHOL: none Drugs: None Lives: with Family CURRENT MEDICATIONS CURRENT MEDICATIONS Current Medications Medications (Trade) Dose Ordered Sig/Mady Route PRN Reason Start Time Stop Time Status Last Admin Dose Admin Aspirin (Children'S Aspirin) 324 mg 1X ONCE PO 08/20/19 05:30 08/20/19 05:31 DC 08/20/19 05:14 Hydralazine HCl (Apresoline Inj) 10 mg 1X ONCE IVP 08/20/19 05:30 08/20/19 05:31 DC 08/20/19 05:28 Iohexol (Omnipaque 300 Mg/ml) 75 ml 1X ONCE IV 08/20/19 06:00 08/20/19 06:01 DC 08/20/19 05:55 ALLERGIES ALLERGIES: Coded Allergies: No Known Drug Allergies (Unverified , 09/11/16) ROS Review of System 14 point ROS evaluated with pertinent positives noted per HPI PHYSICAL EXAM General: Alert, Oriented X3, Cooperative, No acute distress HEENT: Atraumatic, Mucous membr. moist/pink Lungs: Clear to auscultation, Normal air movement Heart: Regular rate (SR), Normal S1, Normal S2, Other (S4; 3/6 systolic murmur to LLS border) Abdomen: Soft, No tenderness Extremities: No cyanosis, No edema Skin: No breakdown, No significant lesion Neuro: Normal speech, Sensation intact Psych/Mental Status: Mental status NL, Mood NL MUSCULOSKELETAL: Osteoarthritic changes both hands VITALS/I&O VITALS/I&O: Vital Signs Date Time Temp Pulse Resp B/P (MAP) Pulse Ox O2 Delivery O2 Flow Rate FiO2 08/20/19 08:00 74 20 218/101 (140) 96 Room Air LABS Lab: Laboratory Tests Test 08/20/19 04:50 08/20/19 06:30 White Blood Count 8.0 x10^3/uL (4.0-11.0) Red Blood Count 4.65 x10^6/uL (4.30-5.70) Hemoglobin 16.4 g/dL (13.0-17.5) Hematocrit 46.6 % (39.0-53.0) Mean Corpuscular Volume 100 fL (79-100) Mean Corpuscular Hemoglobin 35 pg (25-35) Mean Corpuscular Hemoglobin Concent 35 g/dL (31-37) Red Cell Distribution Width 14.5 % (11.5-14.5) Platelet Count 180 x10^3/uL (140-400) Neutrophils (%) (Auto) 65 % (31-73) Lymphocytes (%) (Auto) 23 % (24-48) L Monocytes (%) (Auto) 8 % (0-9) Eosinophils (%) (Auto) 3 % (0-3) Basophils (%) (Auto) 1 % (0-3) Neutrophils # (Auto) 5.2 x10^3/uL (1.8-7.7) Lymphocytes # (Auto) 1.8 x10^3/uL (1.0-4.8) Monocytes # (Auto) 0.7 x10^3/uL (0.0-1.1) Eosinophils # (Auto) 0.2 x10^3/uL (0.0-0.7) Basophils # (Auto) 0.1 x10^3/uL (0.0-0.2) Prothrombin Time 12.9 SEC (11.7-14.0) Prothrombin Time INR 1.0 (0.8-1.1) Sodium Level 143 mmol/L (136-145) Potassium Level 3.7 mmol/L (3.5-5.1) Chloride Level 108 mmol/L (98-107) H Carbon Dioxide Level 29 mmol/L (21-32) Anion Gap 6 (6-14) Blood Urea Nitrogen 23 mg/dL (8-26) Creatinine 1.1 mg/dL (0.7-1.3) Estimated GFR (Cockcroft-Gault) 67.0 BUN/Creatinine Ratio 21 (6-20) H Glucose Level 112 mg/dL (70-99) H Calcium Level 9.0 mg/dL (8.5-10.1) Total Bilirubin 0.6 mg/dL (0.2-1.0) Aspartate Amino Transferase (AST) 27 U/L (15-37) Alanine Aminotransferase (ALT) 38 U/L (16-63) Alkaline Phosphatase 106 U/L (46-116) Troponin I Quantitative < 0.017 ng/mL (0.000-0.055) OQ-Emo-A-Type Natriuretic Peptide 378 pg/mL (0-124) H Total Protein 7.1 g/dL (6.4-8.2) Albumin 3.7 g/dL (3.4-5.0) Albumin/Globulin Ratio 1.1 (1.0-1.7) Lipase 1018 U/L (73-393) H Urine Collection Type Unknown Urine Color Yellow Urine Clarity Clear Urine pH 6.0 Urine Specific [place] 1.025 Urine Protein Negative mg/dL (NEG-TRACE) Urine Glucose (UA) Negative mg/dL (NEG) Urine Ketones (Stick) Negative mg/dL (NEG) Urine Blood Negative (NEG) Urine Nitrite Negative (NEG) Urine Bilirubin Negative (NEG) Urine Urobilinogen Dipstick 0.2 mg/dL (0.2 mg/dL) Urine Leukocyte Esterase Negative (NEG) Urine RBC 0 /HPF (0-2) Urine WBC 0 /HPF (0-4) Urine Squamous Epithelial Cells Occ /LPF Urine Bacteria 0 /HPF (0-FEW) Laboratory Tests 08/20/19 04:50 Laboratory Tests 08/20/19 04:50 ASSESSMENT/PLAN ASSESSMENT/PLAN 1. Accelerated HTN: not on any regimen 2. Chest pain: possibly from above. inital trop nml. EKG no changes by c omparison. 3. Large right renal mass 4. Elevated lipase: no GI symptoms. Per PCP. 5. iAAA: 3.4 cm 6. Tobaccoism 7. CAD: PTCA 21 yrs ago 8. Hx of testicular CA with orchiectomy 9. RLE claudication pain Recommendations 1. TTE, lipids, TSH, RLE arterial duplex 2. Vascular and IR have been consulted 3. Norvasc, coreg. Statin per lipids. ASA Hydralazine IV 4. Smoking cessation 5. Will trend troponin and repeat EKG. Ischemic w/u is a consideration pending test and plans in regards to his renal mass. PRAVIN PAREKH MAIL CLERKS SUPERVISOR Aug 20, 2019 09:17
[2019-08-20 09:41] LABS: CHOLESTEROL/HDL RATIO 4.2
[2019-08-20] MEDS: CARVEDILOL 6.25 MG TABLET. PO SCH ×2 (09:44→16:21)
[2019-08-20] MEDS: ALPRAZolam 0.5 MG TABLET PO SCH ×4 (09:45→21:02)
[2019-08-20] MEDS: amLODIPine BESYLATE 10 MG TABLET PO SCH (09:45)
[2019-08-20] MEDS: CITALOPRAM 20 MG TABLET. PO SCH (09:46)
[2019-08-20 10:38] VITALS: BP 158/74
--- NOTE | 2019-08-20 10:48 | NUR ---
SS following for discharge planning. SS reviewed pt chart. Pt is from home with spouse and is currently on room air. No discharge needs noted at this time. SS will continue to follow for discharge planning.
--- NOTE | 2019-08-20 11:08 | EKG ---
[facility] [address] [place] [address] Test Date: 2019-08-20 Test Time: 12:07:28 Pat Name: KAYCE PALOMINO Department: Room: 206 1 Gender: M [employer] Department: : 1950 Requested By: PRAVIN PAREKH Order Number: [id number] Reading MD: Sandip Leong MD Measurements Intervals [place] Rate: 62 P: 59 MN: 160 QRS: 47 QRSD: 106 T: 28 QT: 448 QTc: 457 Interpretive Statements SINUS RHYTHM NON-SPECIFIC ST/T CHANGES Electronically Signed On 09-07-2019 8:16:46 FLOTATION OPERATOR by Sandip Leong MD
--- NOTE | 2019-08-20 12:58 | PDOC ---
Provider Note Provider Note IR NOTE Asked to review imaging on patient in regards to 5.3 cm enhancing partially cystic mass in the right kidney. Features are consistent with neoplasm, most commonly renal cell carcinoma. If patient is a surgical candidate, recommend urology consult prior to biopsy as this mass will likely require at least partial nephrectomy no matter what biopsy shows. Additionally biopsy of partially cystic lesions are generally of lower yield. If urology feels biopsy is needed, could perform after 5 days of holding aspirin. 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 BHASKAR MORENO MD Aug 20, 2019 12:58
--- NOTE | 2019-08-20 13:35 | CARD ---
MR#: [id number] Date of Study: 08/20/2019 Ordering Physician: Sandy CAIN, Referring Physician: Lizzette BARBOSA: Sultana Mckeon APPROVED REPORT EXAM: Two-dimensional and M-mode echocardiogram with Doppler and color Doppler. Other Information Quality : AverageHR: 59bpm INDICATION Chest Pain 2D DIMENSIONS RVDd2.3 (2.9-3.5cm)Left Atrium(2D)2.9 (1.6-4.0cm) IVSd1.2 (0.7-1.1cm)Aortic Root(2D)3.0 (2.0-3.7cm) LVDd5.4 (3.9-5.9cm)LVOT Diameter2.1 (1.8-2.4cm) PWd1.0 (0.7-1.1cm)LVDs3.9 (2.5-4.0cm) FS (%) 28.0 %SV75.1 ml LVEF(%)53.8 (>50%) Aortic Valve AoV Peak Alfredo.121.6cm/sAoV VTI22.1cm AO Peak GR.5.9mmHgLVOT Peak Alfredo.86.0cm/s LVOT VTI 17.05cmAO Mean GR.3mmHg BROOKS (VMAX)1.67ej2CKZ (VTI)2.76cm2 Mitral Valve MV E Vivboqnt39.4cm/sMV DECEL PIRR411iz MV A Kyuapqch30.9cm/sMV [id number] E/A Ratio0.9MVA (PHT)2.21cm2 TDI E/Lateral E'7.1E/Medial E'10.1 Pulmonary Valve PV Peak Igzaoaxv42.9cm/sPV Peak Grad.2mmHg Tricuspid Valve RAP [id number] Pulmonary Vein S1 Dpwfydxr89.8cm/sD2 Gkjabcbh11.9cm/s PVa [id number] LEFT VENTRICLE The left ventricle is normal size. There is borderline to mild concentric left ventricular hypertroph y. The ejection fraction is estimated at 55%. Basal inferior and posterior wall hypokinesis. Transmit ral Doppler flow pattern is Grade I-abnormal relaxation pattern. RIGHT VENTRICLE The right ventricle is normal size. There is normal right ventricular wall thickness. The right ventr icular systolic function is normal. ATRIA The left atrium size is normal. The right atrium size is normal. The interatrial septum is intact wit h no evidence for an atrial septal defect or patent foramen ovale as noted on 2-D or Doppler imaging. AORTIC VALVE The aortic valve is thickened but opens well. Doppler and Color Flow revealed no significant aortic r egurgitation. There is no significant aortic valvular stenosis. MITRAL VALVE The mitral valve is thickened but opens well. There is no evidence of mitral valve prolapse. There is no mitral valve stenosis. Doppler and Color-flow revealed trace mitral regurgitation. TRICUSPID VALVE The tricuspid valve is normal in structure and function. Doppler and Color Flow revealed trace tricus pid regurgitation. There is no tricuspid valve stenosis. PULMONIC VALVE The pulmonic valve is not well visualized. Doppler and Color Flow revealed no pulmonic valvular regur gitation. GREAT VESSELS The aortic root is normal in size. The ascending aorta is normal in size. The IVC is normal in size a nd collapses >50% with inspiration. PERICARDIAL EFFUSION There is no pleural effusion. There is no evidence of significant pericardial effusion. Critical Notification Critical Value: No <Conclusion> Basal inferior and posterior wall hypokinesis. The ejection fraction is estimated at 55%. Transmitral Doppler flow pattern is Grade I-abnormal relaxation pattern. Trace mitral regurgitation. Trace tricuspid regurgitation. There is no evidence of significant pericardial effusion. Signed by : Henry Felipe, Electronically Approved : 08/20/2019 13:34:50
--- NOTE | 2019-08-20 14:31 | NUR ---
PT NOT GIVEN SCHEDULED ASPIRIN THIS SHIFT DUE TO RECEIVING IN ER PRIOR TO COMING TO THE FLOOR. SPOKE WITH DR CAIN THIS MORNING AND FLUIDS NOT CONTINUED THIS WAS AN ER ORDER AND PT HAS HYPERTENSION.
[2019-08-20 14:48] VITALS: BP 172/78
--- NOTE | 2019-08-20 15:05 | NUR ---
SPOKE WITH PT REGARDING FLU VACCINE. PT WOULD LIKE TO TAKE ON DISCHARGE AND NOT AT THIS TIME. PT HAS BECOME MORE ANXIOUS AND REALLY WANTS TO GO HOME. EXPLAINED TO THE PT THAT HE HAS NOT BEEN SEEN BY ALL OF THE DR'S YET. LEFT MESSAGE FOR DR CAIN AT A APPROX 1500 SPOKE DIRECTLY TO STAFF REGARDING NICOTINE PATCH FOR THE PT AND PT WANTING TO GO HOME.
--- NOTE | 2019-08-20 15:09 | NUR ---
PT ADMITTED TO THE FLOOR AT APPROX 1510 VIA GURNEY FROM THE ER. FAMILY PRESENT UPON ADMISSION. PT ORIENTED TO ROOM, FLOOR AND STAFF. REPORT GIVEN BY SHANTAL IN THE ER.
[2019-08-20] MEDS: ISOSORBIDE MONONITRATE ER 30 MG TAB.ER.24H PO SCH (16:22)
[2019-08-20] MEDS: NICOTINE 21MG PATCH. TD SCH (16:27)
[2019-08-20 18:34] VITALS: BP 106/53
--- NOTE | 2019-08-20 19:37 | PDOC ---
Provider Note Provider Note (please see full dictation) 68 yo male presents with right leg pain for the last 5 months. He has pain and cramping in the lower leg with activity. Denies any pain at rest or ulcers. He was incidentally noted to have a right renal mass suspicious or renal cell CA. He has a remote history of testicular ca for which he had radiation. 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 Will need a formal CTA AARO to better evaluate the arterial occlusion. He will also need Urology evaluation to determine treatment of the renal mass before elective right leg revascularization. Urology evaluation can be done as outpatient if there is not available for inpatient evaluation. Will plan CTA tomorrow if Cr okay. SUSHILA RICHARDS MD Aug 20, 2019 19:37
--- NOTE | 2019-08-20 20:14 | CONS ---
DATE OF CONSULTATION: 08/20/2019 CHIEF COMPLAINT: Right leg pain. HISTORY OF PRESENT ILLNESS: The patient is a 68-year-old male with history of atherosclerotic heart disease, hypertension, and hyperlipidemia, who presents with several-month history of right leg pain. He notes onset of right calf pain with activity approximately 5 months ago. He denies any leg pain prior to this time. He notes pain in the right calf as well as a cramping sensation that starts after walking approximately a block. He denies any pain at rest. He denies any previous history of foot ulcers. He had some transient left chest wall pain earlier today, but this completely resolved. He thinks that he may have pulled a muscle yesterday. He states that this pain is different than when he had his heart attack many years ago. He has a remote history of testicular cancer for which he had abdominal and pelvic radiation. This was completed in around 1990. He denies any recent hematuria or dysuria. A CT of the abdomen and pelvis showed some ectasia or small aneurysm of the infrarenal aorta with mural thrombus. There is also incidental note of occlusion at the origin of the right common iliac artery that appeared to extend through the external iliac artery. There is some calcification of the arterial wall, but the left common and external iliac arteries were patent. This is on a standard CT scan. Artifact from his right hip prosthesis limited visualization of the right femoral artery. An ultrasound demonstrated blunted arterial waveforms starting in the common femoral artery extending distally consistent with arterial inflow disease. PAST MEDICAL HISTORY: 1. Coronary artery disease with previous myocardial infarction many years ago. 2. Hypertension. 3. Hyperlipidemia. 4. Gastroesophageal reflux disease. 5. Remote history of testicular cancer, status post orchiectomy and radiation therapy. PAST SURGICAL HISTORY: 1. Orchiectomy. 2. Right total hip arthroplasty. CURRENT MEDICATIONS: Atorvastatin 20 mg every day, Nicoderm patch 21 mcg, isosorbide mononitrate 30 mg every day, amlodipine 10 mg every day, Coreg 6.25 mg b.i.d., Celexa 40 mg every day, aspirin 162 mg every day, Xanax 0.5 mg q.i.d. ALLERGIES: No known drug allergies. SOCIAL HISTORY: He smokes approximately 8 small cigars a day. Denies any alcohol use or illicit drug use. FAMILY HISTORY: Denies any family history of aneurysms. REVIEW OF SYSTEMS: No recent fevers, chills, or shortness of breath. He had some left chest wall pain earlier today that has completely resolved. He has had similar pain that he has associated with pulling a muscle. He denies any nausea, vomiting, diarrhea, constipation, hematochezia, melena or other GI symptoms. No hematuria or dysuria. No significant abdominal pain. He notes right leg pain as described above. He denies any lower extremity swelling or areas of skin breakdown. He denies any unilateral weakness/numbness, vision loss, speech changes, or other TIA or stroke type symptoms. PHYSICAL EXAMINATION: GENERAL: This is a well-developed male, in no acute distress. VITAL SIGNS: Temperature 98.4, pulse 62, blood pressure 106/53, respirations 18. NECK: Supple, no lymphadenopathy. CARDIOVASCULAR: Regular rhythm. ABDOMEN: Soft, nontender, nondistended, no palpable masses. He has tattooing from previous radiation. EXTREMITIES: He has palpable radial, left femoral and left pedal pulses. His right femoral, popliteal, and pedal pulses are nonpalpable. He has no significant peripheral edema or areas of skin breakdown. NEUROLOGIC: He is awake, alert, answering all questions appropriately. He has equal upper and lower extremity strength. He has no focal deficits at this time. LABORATORY DATA: Significant for white blood cell 8.0, hemoglobin 16.4, platelet count of 180. INR 1.0. Sodium 143, potassium 3.7, BUN 23, creatinine 1.1, glucose 112. Liver function tests are unremarkable. BNP was 378, albumin 3.7. Lipase was 1018. His LDL cholesterol was 99 with total cholesterol of 158. CT of the abdomen showed no evidence of pancreatic or peripancreatic inflammatory changes. There is a right renal mass as noted above as well as a very large left renal simple cyst. There is a 3.4 cm infrarenal abdominal aortic aneurysm or ectasia with some mural thickening or plaque with occlusion of his right iliac system as noted above. IMPRESSION: 1. 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 2. Small infrarenal abdominal aortic aneurysm (3.4 cm). 3. Right renal mass suspicious for renal cell cancer. 4. Remote history of testicular cancer, status post abdominal and pelvic radiation. 5. Coronary artery disease (asymptomatic at this time). 6. Tobacco abuse. 7. Hypertension. RECOMMENDATIONS: 1. He will need further imaging with CT angiogram of the abdomen and bilateral lower extremities to better evaluate the extent of the arterial occlusion. 2. I discussed potential treatment options with him including aortobifemoral reconstruction versus femoral-femoral bypass. He may also be amenable to endovascular recannulization of the common and external iliac artery pending CT angiogram. Femoral-femoral bypass is most likely the best option in the face of his small infrarenal aneurysm and previous pelvic radiation and right renal cell cancer. We will determine final options once CT angiogram is available. 3. He will require Urology evaluation. If this is not available while inpatient, he may be discharged with outpatient followup with Urology. We would like to have a plan with regards to his renal mass prior to proceeding with elective right leg revascularization. I discussed this in detail with him. SUSHILA RICHARDS MD DR: BRENTON/pernell JOB#: [id number] / [id number] Elizabeth Kellogg MD, DONALD MD PARRA, MICHAEL MD
[2019-08-20] MEDS ORDERED: ATORVASTATIN CALCIUM 20 MG TABLET PO SCH (21:00)
[2019-08-20 23:01] VITALS: BP 123/64
[2019-08-21 03:46] VITALS: BP 144/70
[2019-08-21 03:55] LABS: CALCIUM 8.8 mg/dL (8.5-10.1); GFR 74.5; POTASSIUM 3.7 mmol/L (3.5-5.1)
[2019-08-21 07:00] VITALS: BP 181/86
[2019-08-21] MEDS ORDERED: CONTRAST GIVEN. MC PRN (08:15)
[2019-08-21] MEDS ORDERED: IOHEXOL 350 MG/ML 100 ML VIAL. IV ONE (08:15)
[2019-08-21] MEDS: ALPRAZolam 0.5 MG TABLET PO SCH ×3 (08:16→17:41)
--- NOTE | 2019-08-21 08:38 | NUR ---
Pt left the floor at approx 0830 for runoff. Respiratory dropped smoking cessation materials about that time. will spek to pt about them when he gets back to the floor.
--- NOTE | 2019-08-21 09:11 | RAD ---
EXAM: Right lower extremity arterial Doppler. HISTORY: Right lower extremity pain. Decreased pulses. COMPARISON: None. FINDINGS: Grayscale and Doppler analysis of the right lower extremity arterial system was performed. There are monophasic waveforms throughout the right lower extremity. The waveforms become more blunted within the popliteal artery and distally. There is slow postobstructive flow within the dorsalis pedis and distal posterior tibial arteries. IMPRESSION: 1. Significantly flow-limiting stenosis proximal to the common femoral artery. There is additional flow-limiting stenosis within the distal superficial femoral and trifurcation vessels. Electronically signed by: Lazaro Uriostegui MD (08/21/2019 9:09 AM) [facility]
--- NOTE | 2019-08-21 10:11 | PDOC ---
PROGRESS NOTES Subjective Subjective Patient seen and examined in room. Complains of right calf cramping with ambulation usually within one block. Resolves with rest. Objective Objective Vital Signs Date Time Temp Pulse Resp B/P (MAP) Pulse Ox O2 Delivery O2 Flow Rate FiO2 08/21/19 07:00 97.5 67 16 181/86 (117) 95 Nasal Cannula 97.5 Intake and Output 08/21/19 07:00 Intake Total 360 ml Output Total 650 ml Balance -290 ml Intake Oral 360 ml Output Urine Total 650 ml Physical Exam Physical Exam Awake and alert HRR Non-laobered respirations Abdomen soft, NTND Right foot warm, unable to palpate right femoral or distal pulses. Motor and sensation intact. Gait stable. Assessment Assessment Problems Medical Problems: (1) Chest pain Status: Acute (2) Pancreatitis Status: Acute (3) Right renal mass Status: Acute Plan Plan of Care Lower extremity ultrasound: There are monophasic waveforms throughout the right lower extremity. The waveforms become more blunted within the popliteal artery and distally. There is slow postobstructive flow within the dorsalis pedis and distal posterior tibial arteries. IMPRESSION: 1. Significantly flow-limiting stenosis proximal to the common femoral artery. There is additional flow-limiting stenosis within the distal superficial femoral and trifurcation vessels. 68 yo male presents with right leg pain for the last 5 months. He has pain and cramping in the lower leg with activity. Denies any pain at rest or ulcers. He was incidentally noted to have a right renal mass suspicious or renal cell CA. He has a remote history of testicular cancer for which he had radiation. He has an occluded right common and external iliac artery with significantly flow limiting stenosis to the common femoral and flow limiting stenosis within SFA and trifurcation vessels. CTA results pending. He will also need Urology evaluation to determine treatment of the renal mass before elective right leg revascularization. Urology evaluation can be done as outpatient if there is not available for inpatient evaluation. Recommend this be arranged prior to discharge. We will plan follow up with patient as an outpatient. Discussed plan of care with patient and he expresses understanding. Recommend continued lifestyle modifications to include daily aspirin, statin therapy and smoking cessation. Discussed walking program with patient. Comment Review of Relevant I have reviewed the following items jono (where applicable) has been applied. Labs Laboratory Tests Test 08/20/19 04:50 08/20/19 06:30 08/20/19 09:30 08/20/19 12:30 White Blood Count 8.0 x10^3/uL (4.0-11.0) Red Blood Count 4.65 x10^6/uL (4.30-5.70) Hemoglobin 16.4 g/dL (13.0-17.5) Hematocrit 46.6 % (39.0-53.0) Mean Corpuscular Volume 100 fL (79-100) Mean Corpuscular Hemoglobin 35 pg (25-35) Mean Corpuscular Hemoglobin Concent 35 g/dL (31-37) Red Cell Distribution Width 14.5 % (11.5-14.5) Platelet Count 180 x10^3/uL (140-400) Neutrophils (%) (Auto) 65 % (31-73) Lymphocytes (%) (Auto) 23 % (24-48) Monocytes (%) (Auto) 8 % (0-9) Eosinophils (%) (Auto) 3 % (0-3) Basophils (%) (Auto) 1 % (0-3) Neutrophils # (Auto) 5.2 x10^3/uL (1.8-7.7) Lymphocytes # (Auto) 1.8 x10^3/uL (1.0-4.8) Monocytes # (Auto) 0.7 x10^3/uL (0.0-1.1) Eosinophils # (Auto) 0.2 x10^3/uL (0.0-0.7) Basophils # (Auto) 0.1 x10^3/uL (0.0-0.2) Prothrombin Time 12.9 SEC (11.7-14.0) Prothromb Time International Ratio 1.0 (0.8-1.1) Sodium Level 143 mmol/L (136-145) Potassium Level 3.7 mmol/L (3.5-5.1) Chloride Level 108 mmol/L (98-107) Carbon Dioxide Level 29 mmol/L (21-32) Anion Gap 6 (6-14) Blood Urea Nitrogen 23 mg/dL (8-26) Creatinine 1.1 mg/dL (0.7-1.3) Estimated GFR (Cockcroft-Gault) 67.0 BUN/Creatinine Ratio 21 (6-20) Glucose Level 112 mg/dL (70-99) Calcium Level 9.0 mg/dL (8.5-10.1) Total Bilirubin 0.6 mg/dL (0.2-1.0) Aspartate Amino Transf (AST/SGOT) 27 U/L (15-37) Alanine Aminotransferase (ALT/SGPT) 38 U/L (16-63) Alkaline Phosphatase 106 U/L (46-116) Troponin I Quantitative < 0.017 ng/mL (0.000-0.055) 0.059 ng/mL (0.000-0.055) 0.058 ng/mL (0.000-0.055) DF-Iaa-J-Type Natriuretic Peptide 378 pg/mL (0-124) Total Protein 7.1 g/dL (6.4-8.2) Albumin 3.7 g/dL (3.4-5.0) Albumin/Globulin Ratio 1.1 (1.0-1.7) Triglycerides Level 103 mg/dL (0-150) Cholesterol Level 158 mg/dL (0-200) LDL Cholesterol, Calculated 99 mg/dL (0-100) VLDL Cholesterol, Calculated 21 mg/dL (0-40) Non-HDL Cholesterol Calculated 120 mg/dL (0-129) HDL Cholesterol 38 mg/dL (40-60) Cholesterol/HDL Ratio 4.2 Lipase 1018 U/L (73-393) Thyroid Stimulating Hormone (TSH) 1.185 uIU/mL (0.358-3.74) Urine Collection Type Unknown Urine Color Yellow Urine Clarity Clear Urine pH 6.0 Urine Specific [place] 1.025 Urine Protein Negative mg/dL (NEG-TRACE) Urine Glucose (UA) Negative mg/dL (NEG) Urine Ketones (Stick) Negative mg/dL (NEG) Urine Blood Negative (NEG) Urine Nitrite Negative (NEG) Urine Bilirubin Negative (NEG) Urine Urobilinogen Dipstick 0.2 mg/dL (0.2 mg/dL) Urine Leukocyte Esterase Negative (NEG) Urine RBC 0 /HPF (0-2) Urine WBC 0 /HPF (0-4) Urine Squamous Epithelial Cells Occ /LPF Urine Bacteria 0 /HPF (0-FEW) Test 08/21/19 03:00 Sodium Level 142 mmol/L (136-145) Potassium Level 3.7 mmol/L (3.5-5.1) Chloride Level 107 mmol/L (98-107) Carbon Dioxide Level 27 mmol/L (21-32) Anion Gap 8 (6-14) Blood Urea Nitrogen 21 mg/dL (8-26) Creatinine 1.0 mg/dL (0.7-1.3) Estimated GFR (Cockcroft-Gault) 74.5 Glucose Level 121 mg/dL (70-99) Calcium Level 8.8 mg/dL (8.5-10.1) Amylase Level 89 U/L (25-115) Lipase 137 U/L (73-393) Laboratory Tests Test 08/20/19 12:30 08/21/19 03:00 Troponin I Quantitative 0.058 ng/mL (0.000-0.055) Sodium Level 142 mmol/L (136-145) Potassium Level 3.7 mmol/L (3.5-5.1) Chloride Level 107 mmol/L (98-107) Carbon Dioxide Level 27 mmol/L (21-32) Anion Gap 8 (6-14) Blood Urea Nitrogen 21 mg/dL (8-26) Creatinine 1.0 mg/dL (0.7-1.3) Estimated GFR (Cockcroft-Gault) 74.5 Glucose Level 121 mg/dL (70-99) Calcium Level 8.8 mg/dL (8.5-10.1) Amylase Level 89 U/L (25-115) Lipase 137 U/L (73-393) Medications Current Medications Aspirin (Children'S Aspirin) 324 mg 1X ONCE PO Last administered on 08/20/19at 05:14; Start 08/20/19 at 05:30; Stop 08/20/19 at 05:31; Status DC Hydralazine HCl (Apresoline Inj) 10 mg 1X ONCE IVP Last administered on 08/20/19at 05:28; Start 08/20/19 at 05:30; Stop 08/20/19 at 05:31; Status DC Iohexol (Omnipaque 300 Mg/ml) 75 ml 1X ONCE IV Last administered on 08/20/19at 05:55; Start 08/20/19 at 06:00; Stop 08/20/19 at 06:01; Status DC Info (CONTRAST GIVEN -- Rx MONITORING) 1 each PRN DAILY PRN MC SEE COMMENTS; Start 08/20/19 at 06:00; Stop 08/22/19 at 05:59; Status Cancel Ondansetron HCl (Zofran) 4 mg PRN Q8HRS PRN IV NAUSEA/VOMITING 1ST CHOICE; Start 08/20/19 at 06:45; Stop 08/21/19 at 06:44; Status DC Morphine Sulfate (Morphine Sulfate) 2 mg PRN Q2HR PRN IV SEVERE PAIN 7-10; Start 08/20/19 at 06:45; Stop 08/21/19 at 06:44; Status DC Sodium Chloride 1,000 ml @ 125 mls/hr Q8H IV ; Start 08/20/19 at 07:00; Stop 08/20/19 at 15:33; Status DC Alprazolam (Xanax) 0.5 mg QID PO Last administered on 08/21/19at 08:16; Start 08/20/19 at 09:00 Aspirin (Ecotrin) 162 mg DAILY PO ; Start 08/20/19 at 09:00 Acetaminophen/ Hydrocodone Bitart (Lortab 7.5/325) 1 tab PRN Q6HRS PRN PO PAIN; Start 08/20/19 at 08:15 Citalopram Hydrobromide (CeleXA) 40 mg DAILY PO Last administered on 08/20/19at 09:46; Start 08/20/19 at 09:00 Hydralazine HCl (Apresoline Inj) 10 mg PRN Q4HRS PRN IVP ELEVATED BP, SEE COMMENTS Last administered on 08/20/19at 14:59; Start 08/20/19 at 08:45 Influenza Virus Vaccine Quadrival (Afluria Quad 2019-20 (3yr Up) Syringe) 0.5 ml ONCE ONCE VAX IM ; Start 08/20/19 at 09:00; Stop 08/20/19 at 09:01; Status DC Carvedilol (Coreg) 6.25 mg BIDWMEALS PO Last administered on 08/20/19at 16:21; Start 08/20/19 at 10:00 Amlodipine Besylate (Norvasc) 10 mg DAILY PO Last administered on 08/20/19at 09:45; Start 08/20/19 at 10:00 Atorvastatin Calcium (Lipitor) 20 mg QHS PO Last administered on 08/20/19at 21:02; Start 08/20/19 at 21:00 Isosorbide Mononitrate (Imdur) 30 mg DAILY PO Last administered on 08/20/19at 16:22; Start 08/20/19 at 16:00 Nicotine (Nicoderm Cq 21mg) 1 patch DAILY TD Last administered on 08/20/19at 16 :27; Start 08/20/19 at 16:00 Iohexol (Omnipaque 350 Mg/ml) 95 ml 1X ONCE IV Last administered on 08/21/19at 08:15; Start 08/21/19 at 08:15; Stop 08/21/19 at 08:16; Status DC Info (CONTRAST GIVEN -- Rx MONITORING) 1 each PRN DAILY PRN MC SEE COMMENTS; Start 08/21/19 at 08:15; Stop 08/23/19 at 08:14 Active Scripts Active Reported Aspir-Low (Aspirin) 81 Mg Tablet.dr 2 Tab PO DAILY Lortab 7.5-325 mg Tablet (Hydrocodone/Acetaminophen) 1 Each Tablet 1 Tab PO PRN Q6HRS PRN LAST DOSE GIVEN: DATE:09-13-16 TIME:12:30 p.m. NEXT DOSE DUE: DATE:09-13-16 TIME:6:30 p.m. if needed for pain Celexa (Citalopram Hydrobromide) 40 Mg Tablet 1 Tab PO DAILY LAST DOSE GIVEN: DATE:09-13-16 TIME:8:30 a.m. NEXT DOSE DUE: DATE:09-14-16 TIME:8:30 a.m. Xanax (Alprazolam) 0.5 Mg Tablet 0.5 Mg PO QID LAST DOSE GIVEN: DATE:09-13-16 TIME:1:00 p.m. NEXT DOSE DUE: DATE:09-13-16 TIME:5:00 p.m. Vitals/I & O Vital Sign - Last 24 Hours 08/20/19 08/20/19 08/20/19 08/20/19 10:38 12:17 14:48 14:59 Temp 97.9 98.1 97.9 98.1 Pulse 68 58 64 Resp 18 18 B/P (MAP) 158/74 (102) 172/78 (109) 172/78 Pulse Ox 97 96 O2 Delivery Room Air Room Air Room Air 08/20/19 08/20/19 08/20/19 08/20/19 16:21 16:22 18:34 20:00 Temp 98.4 98.4 Pulse 61 68 62 Resp 18 B/P (MAP) 179/81 179/81 106/53 (70) Pulse Ox 96 O2 Delivery Room Air Room Air 08/20/19 08/21/19 08/21/19 23:01 03:46 07:00 Temp 98.7 98.9 97.5 98.7 98.9 97.5 Pulse 62 62 67 Resp 18 18 16 B/P (MAP) 123/64 (83) 144/70 (94) 181/86 (117) Pulse Ox 97 95 95 O2 Delivery Room Air Room Air Nasal Cannula Intake and Output 08/20/19 08/20/19 08/21/19 15:00 23:00 07:00 Intake Total 360 ml 0 ml Output Total 650 ml Balance -650 ml 360 ml 0 ml TODD GUO APRN Aug 21, 2019 10:11
[2019-08-21] MEDS: ASPIRIN ENTERIC COATED 81 MG TABLET.DR. PO SCH (10:15)
[2019-08-21] MEDS: ISOSORBIDE MONONITRATE ER 30 MG TAB.ER.24H PO SCH (10:15)
[2019-08-21] MEDS: CITALOPRAM 20 MG TABLET. PO SCH (10:15)
[2019-08-21] MEDS: CARVEDILOL 6.25 MG TABLET. PO SCH ×2 (10:16→17:43)
[2019-08-21] MEDS: amLODIPine BESYLATE 10 MG TABLET PO SCH (10:17)
[2019-08-21] MEDS: NICOTINE 21MG PATCH. TD SCH (10:18)
[2019-08-21 12:08] VITALS: BP 119/61
--- NOTE | 2019-08-21 13:05 | PDOC ---
PROGRESS NOTES Subjective Subjective Patient seen and examined Objective Objective Vital Signs Date Time Temp Pulse Resp B/P (MAP) Pulse Ox O2 Delivery O2 Flow Rate FiO2 08/21/19 12:08 98.2 61 16 119/61 (80) 97 Nasal Cannula 98.2 Intake and Output 08/21/19 07:00 Intake Total 360 ml Output Total 650 ml Balance -290 ml Intake Oral 360 ml Output Urine Total 650 ml Physical Exam Abdomen: Normal bowel sounds Heart: Regular rate General: No acute distress Lungs: Clear to auscultation Assessment Assessment Problems Medical Problems: (1) Chest pain Status: Acute (2) Pancreatitis Status: Acute (3) Right renal mass Status: Acute Accelerated hypertension. Improved today. Will continue present medical treatment. Chest discomfort. No acute EKG changes. Peak troponin of 0.059. No chest pain. Echo shows an ejection fraction of 55% and inferior basilar hypokinesis consistent with a mild previous infarction. We'll continue medical treatment. We'll follow up as an outpatient in one week. Also workup will also be affected by evaluation the patient's renal mass. Abdominal aortic aneurysm. 3.4 cm. Continue to monitor. Coronary artery disease. Distant PTCA over 21 years ago. Treatment and plan as above. Right renal mass. Workup being set up. History of testicular carcinoma with a orchiectomy. Peripheral vascular disease being evaluated by vascular surgery Comment Review of Relevant I have reviewed the following items jono (where applicable) has been applied. Labs Laboratory Tests Test 08/20/19 04:50 08/20/19 06:30 08/20/19 09:30 08/20/19 12:30 White Blood Count 8.0 x10^3/uL (4.0-11.0) Red Blood Count 4.65 x10^6/uL (4.30-5.70) Hemoglobin 16.4 g/dL (13.0-17.5) Hematocrit 46.6 % (39.0-53.0) Mean Corpuscular Volume 100 fL (79-100) Mean Corpuscular Hemoglobin 35 pg (25-35) Mean Corpuscular Hemoglobin Concent 35 g/dL (31-37) Red Cell Distribution Width 14.5 % (11.5-14.5) Platelet Count 180 x10^3/uL (140-400) Neutrophils (%) (Auto) 65 % (31-73) Lymphocytes (%) (Auto) 23 % (24-48) Monocytes (%) (Auto) 8 % (0-9) Eosinophils (%) (Auto) 3 % (0-3) Basophils (%) (Auto) 1 % (0-3) Neutrophils # (Auto) 5.2 x10^3/uL (1.8-7.7) Lymphocytes # (Auto) 1.8 x10^3/uL (1.0-4.8) Monocytes # (Auto) 0.7 x10^3/uL (0.0-1.1) Eosinophils # (Auto) 0.2 x10^3/uL (0.0-0.7) Basophils # (Auto) 0.1 x10^3/uL (0.0-0.2) Prothrombin Time 12.9 SEC (11.7-14.0) Prothromb Time International Ratio 1.0 (0.8-1.1) Sodium Level 143 mmol/L (136-145) Potassium Level 3.7 mmol/L (3.5-5.1) Chloride Level 108 mmol/L (98-107) Carbon Dioxide Level 29 mmol/L (21-32) Anion Gap 6 (6-14) Blood Urea Nitrogen 23 mg/dL (8-26) Creatinine 1.1 mg/dL (0.7-1.3) Estimated GFR (Cockcroft-Gault) 67.0 BUN/Creatinine Ratio 21 (6-20) Glucose Level 112 mg/dL (70-99) Calcium Level 9.0 mg/dL (8.5-10.1) Total Bilirubin 0.6 mg/dL (0.2-1.0) Aspartate Amino Transf (AST/SGOT) 27 U/L (15-37) Alanine Aminotransferase (ALT/SGPT) 38 U/L (16-63) Alkaline Phosphatase 106 U/L (46-116) Troponin I Quantitative < 0.017 ng/mL (0.000-0.055) 0.059 ng/mL (0.000-0.055) 0.058 ng/mL (0.000-0.055) OI-Tno-L-Type Natriuretic Peptide 378 pg/mL (0-124) Total Protein 7.1 g/dL (6.4-8.2) Albumin 3.7 g/dL (3.4-5.0) Albumin/Globulin Ratio 1.1 (1.0-1.7) Triglycerides Level 103 mg/dL (0-150) Cholesterol Level 158 mg/dL (0-200) LDL Cholesterol, Calculated 99 mg/dL (0-100) VLDL Cholesterol, Calculated 21 mg/dL (0-40) Non-HDL Cholesterol Calculated 120 mg/dL (0-129) HDL Cholesterol 38 mg/dL (40-60) Cholesterol/HDL Ratio 4.2 Lipase 1018 U/L (73-393) Thyroid Stimulating Hormone (TSH) 1.185 uIU/mL (0.358-3.74) Urine Collection Type Unknown Urine Color Yellow Urine Clarity Clear Urine pH 6.0 Urine Specific [place] 1.025 Urine Protein Negative mg/dL (NEG-TRACE) Urine Glucose (UA) Negative mg/dL (NEG) Urine Ketones (Stick) Negative mg/dL (NEG) Urine Blood Negative (NEG) Urine Nitrite Negative (NEG) Urine Bilirubin Negative (NEG) Urine Urobilinogen Dipstick 0.2 mg/dL (0.2 mg/dL) Urine Leukocyte Esterase Negative (NEG) Urine RBC 0 /HPF (0-2) Urine WBC 0 /HPF (0-4) Urine Squamous Epithelial Cells Occ /LPF Urine Bacteria 0 /HPF (0-FEW) Test 08/21/19 03:00 Sodium Level 142 mmol/L (136-145) Potassium Level 3.7 mmol/L (3.5-5.1) Chloride Level 107 mmol/L (98-107) Carbon Dioxide Level 27 mmol/L (21-32) Anion Gap 8 (6-14) Blood Urea Nitrogen 21 mg/dL (8-26) Creatinine 1.0 mg/dL (0.7-1.3) Estimated GFR (Cockcroft-Gault) 74.5 Glucose Level 121 mg/dL (70-99) Calcium Level 8.8 mg/dL (8.5-10.1) Amylase Level 89 U/L (25-115) Lipase 137 U/L (73-393) Laboratory Tests Test 08/21/19 03:00 Sodium Level 142 mmol/L (136-145) Potassium Level 3.7 mmol/L (3.5-5.1) Chloride Level 107 mmol/L (98-107) Carbon Dioxide Level 27 mmol/L (21-32) Anion Gap 8 (6-14) Blood Urea Nitrogen 21 mg/dL (8-26) Creatinine 1.0 mg/dL (0.7-1.3) Estimated GFR (Cockcroft-Gault) 74.5 Glucose Level 121 mg/dL (70-99) Calcium Level 8.8 mg/dL (8.5-10.1) Amylase Level 89 U/L (25-115) Lipase 137 U/L (73-393) Medications Current Medications Aspirin (Children'S Aspirin) 324 mg 1X ONCE PO Last administered on 08/20/19at 05:14; Start 08/20/19 at 05:30; Stop 08/20/19 at 05:31; Status DC Hydralazine HCl (Apresoline Inj) 10 mg 1X ONCE IVP Last administered on 08/20/19at 05:28; Start 08/20/19 at 05:30; Stop 08/20/19 at 05:31; Status DC Iohexol (Omnipaque 300 Mg/ml) 75 ml 1X ONCE IV Last administered on 08/20/19at 05:55; Start 08/20/19 at 06:00; Stop 08/20/19 at 06:01; Status DC Info (CONTRAST GIVEN -- Rx MONITORING) 1 each PRN DAILY PRN MC SEE COMMENTS; Start 08/20/19 at 06:00; Stop 08/22/19 at 05:59; Status Cancel Ondansetron HCl (Zofran) 4 mg PRN Q8HRS PRN IV NAUSEA/VOMITING 1ST CHOICE; Start 08/20/19 at 06:45; Stop 08/21/19 at 06:44; Status DC Morphine Sulfate (Morphine Sulfate) 2 mg PRN Q2HR PRN IV SEVERE PAIN 7-10; Start 08/20/19 at 06:45; Stop 08/21/19 at 06:44; Status DC Sodium Chloride 1,000 ml @ 125 mls/hr Q8H IV ; Start 08/20/19 at 07:00; Stop 08/20/19 at 15:33; Status DC Alprazolam (Xanax) 0.5 mg QID PO Last administered on 08/21/19at 08:16; Start 08/20/19 at 09:00 Aspirin (Ecotrin) 162 mg DAILY PO Last administered on 08/21/19at 10:15; Start 08/20/19 at 09:00 Acetaminophen/ Hydrocodone Bitart (Lortab 7.5/325) 1 tab PRN Q6HRS PRN PO PAIN; Start 08/20/19 at 08:15 Citalopram Hydrobromide (CeleXA) 40 mg DAILY PO Last administered on 08/21/19at 10:15; Start 08/20/19 at 09:00 Hydralazine HCl (Apresoline Inj) 10 mg PRN Q4HRS PRN IVP ELEVATED BP, SEE COMMENTS Last administered on 08/20/19at 14:59; Start 08/20/19 at 08:45 Influenza Virus Vaccine Quadrival (Afluria Quad 2019-20 (3yr Up) Syringe) 0.5 ml ONCE ONCE VAX IM ; Start 08/20/19 at 09:00; Stop 08/20/19 at 09:01; Status DC Carvedilol (Coreg) 6.25 mg BIDWMEALS PO Last administered on 08/21/19at 10:16; Start 08/20/19 at 10:00 Amlodipine Besylate (Norvasc) 10 mg DAILY PO Last administered on 08/21/19at 10:17; Start 08/20/19 at 10:00 Atorvastatin Calcium (Lipitor) 20 mg QHS PO Last administered on 08/20/19at 21:02; Start 08/20/19 at 21:00 Isosorbide Mononitrate (Imdur) 30 mg DAILY PO Last administered on 08/21/19at 10:15; Start 08/20/19 at 16:00 Nicotine (Nicoderm Cq 21mg) 1 patch DAILY TD Last administered on 08/21/19at 10:18; Start 08/20/19 at 16:00 Iohexol (Omnipaque 350 Mg/ml) 95 ml 1X ONCE IV Last administered on 08/21/19 08:15; Start 08/21/19 at 08:15; Stop 08/21/19 at 08:16; Status DC Info (CONTRAST GIVEN -- Rx MONITORING) 1 each PRN DAILY PRN MC SEE COMMENTS; Start 08/21/19 at 08:15; Stop 08/23/19 at 08:14 Active Scripts Active Reported Aspir-Low (Aspirin) 81 Mg Tablet.dr 2 Tab PO DAILY Lortab 7.5-325 mg Tablet (Hydrocodone/Acetaminophen) 1 Each Tablet 1 Tab PO PRN Q6HRS PRN LAST DOSE GIVEN: DATE:09-13-16 TIME:12:30 p.m. NEXT DOSE DUE: DATE:09-13-16 TIME:6:30 p.m. if needed for pain Celexa (Citalopram Hydrobromide) 40 Mg Tablet 1 Tab PO DAILY LAST DOSE GIVEN: DATE:09-13-16 TIME:8:30 a.m. NEXT DOSE DUE: DATE:09-14-16 TIME:8:30 a.m. Xanax (Alprazolam) 0.5 Mg Tablet 0.5 Mg PO QID LAST DOSE GIVEN: DATE:09-13-16 TIME:1:00 p.m. NEXT DOSE DUE: DATE:09-13-16 TIME:5:00 p.m. Vitals/I & O Vital Sign - Last 24 Hours 08/20/19 08/20/19 08/20/19 08/20/19 14:48 14:59 16:21 16:22 Temp 98.1 98.1 Pulse 58 64 61 68 Resp 18 B/P (MAP) 172/78 (109) 172/78 179/81 179/81 Pulse Ox 96 O2 Delivery Room Air 08/20/19 08/20/19 08/20/19 08/21/19 18:34 20:00 23:01 03:46 Temp 98.4 98.7 98.9 98.4 98.7 98.9 Pulse 62 62 62 Resp 18 18 18 B/P (MAP) 106/53 (70) 123/64 (83) 144/70 (94) Pulse Ox 96 97 95 O2 Delivery Room Air Room Air Room Air Room Air 08/21/19 08/21/19 08/21/19 08/21/19 07:00 08:00 10:15 10:16 Temp 97.5 97.5 Pulse 67 85 79 Resp 16 B/P (MAP) 181/86 (117) 178/81 178/81 Pulse Ox 95 O2 Delivery Nasal Cannula Room Air 08/21/19 08/21/19 08/21/19 10:17 11:30 12:08 Temp 98.2 98.2 Pulse 78 65 61 Resp 16 B/P (MAP) 178/81 119/61 (80) Pulse Ox 97 O2 Delivery Nasal Cannula Intake and Output 08/20/19 08/20/19 08/21/19 15:00 23:00 07:00 Intake Total 360 ml 0 ml Output Total 650 ml Balance -650 ml 360 ml 0 ml LAKESHA HESS MD Aug 21, 2019 13:05
[2019-08-21 15:00] VITALS: BP 120/64
--- NOTE | 2019-08-21 17:10 | RAD ---
EXAM: CT ANGIOGRAPHY OF THE ABDOMEN, PELVIS AND LOWER EXTREMITIES WITH AND WITHOUT CONTRAST. HISTORY: Right lower rib pain. Biliary occlusion. TECHNIQUE: Computed tomographic angiography of the abdomen, pelvis and lower extremities was performed before and after the intravenous administration of iodinated contrast. 3-D maximum intensity projections were also performed. COMPARISON: 08/20/2019. FINDINGS: Images of the lung bases reveal moderate centrilobular emphysema. The left ventricle is at least mildly dilated. Bone windows reveal no clear suspicious lesions. Lumbar central canal stenosis is at least moderate. A right total hip arthroplasty is noted. Refer to the prior study for description of a 4.7 x 4.2 cm right renal mass consistent with renal cell carcinoma. A large cyst in the left kidney measures 8.7 cm and contains an 11 mm nodule or this is also concerning. A calculus in the lower pole measures 4 mm. There is a calcified granuloma in the spleen. A small cyst is suspected in hepatic segment 8. The pancreas, adrenal glands and gallbladder are unremarkable. There are no pathologically enlarged lymph nodes. There is no small bowel obstruction. Sigmoid diverticulosis is severe. An infrarenal abdominal aortic aneurysm measures 3.4 cm. There is extensive mural thrombus. Minimal luminal diameter is 12 mm. The right common, external and internal iliac arteries are occluded. There is multifocal mild stenosis within the left external iliac artery. The left common iliac artery is patent. The left internal iliac artery is ectatic at 1 cm. The anterior division is occluded. The right common femoral artery reconstitutes from collaterals mostly from the anterior abdominal wall. The deep and superficial femoral arteries are patent. There is multifocal mild to moderate stenosis within the superficial femoral artery, mostly distally. The right popliteal artery is patent. The left common femoral artery is patent. There is multifocal mild stenosis within the left superficial femoral artery. The deep femoral arteries patent. The popliteal artery demonstrates moderate atherosclerotic irregularity without stenosis. There are three-vessel trifurcations bilaterally. The left peroneal artery is relatively severely diseased in its midportion but patent more laterally. There is moderate stenosis of the right anterior tibial artery at its origin. There is multifocal stenoses elsewhere. There is a moderate stenosis at the origin of the celiac axis with poststenotic dilatation. The superior mesenteric artery and inferior mesenteric artery are patent. There are 2 right renal arteries. The more proximal to the upper pole is severely stenotic just beyond its origin. The left proximal renal artery is subtotally stenotic. IMPRESSION: 1. The left renal artery is subtotally stenotic just beyond its origin. The more superior right renal artery is also severely stenotic. 2. 3.4 cm abdominal aortic aneurysm. Extensive mural thrombus. 3. The right common, internal and external iliac systems are occluded. The right superficial femoral artery reconstitutes. 4. Mild to moderate bilateral superficial femoral artery stenosis. 5. Bilateral three-vessel trifurcations are moderately diseased. 6. Moderate stenosis at the origin of the celiac axis. 7. Right renal cell carcinoma. A large left renal cyst also has a soft tissue nodule is also concerning. Ongoing management is recommended. 8. At least moderate centrilobular emphysema. *One or more of the following individualized dose reduction techniques were utilized for this examination: 1. Automated exposure control. 2. Adjustment of the mA and/or kV according to patient size. 3. Use of iterative reconstruction technique. Electronically signed by: Lazaro Uriostegui MD (08/21/2019 5:07 PM) [facility]
[2019-08-21] MEDS ORDERED: CARV6.2511 PO (17:29)
[2019-08-21] MEDS ORDERED: Nicotine 21MG TD (17:29)
[2019-08-21] MEDS ORDERED: ISOS30TA4 PO (17:29)
[2019-08-21] MEDS ORDERED: AMLO10TA8 PO (17:29)
[2019-08-21] MEDS ORDERED: ATOR20TA58 PO (17:29)
[2019-08-21 17:43] VITALS: BP 120/64
--- NOTE | 2019-08-21 17:43 | PDOC3 ---
Discharge Summary [facility] Date of Admission: Aug 20, 2019 Discharge Date: Aug 21, 2019 Admitting Diagnosis chest pain Final Diagnosis (1) Chest pain -from demand ischemia from uncontrolled hypertension Status: Acute (2) hypertensive urgency Status: Acute (3) Right renal mass Status: Acute CONSULTS cardiology, IR, urology, vascular Procedures aorta with runoff Brief Hospital Course Mr. Cat is a 69 old who presented with left flank pain but found to be hypertensive with abnormal lipase and had CT abd/pelvis with showed a normal pancreas but left renal stone, right renal mass likely a renal cell carcinoma, infrarenal aneurysm with the left renal artery found to be subtotally stenotic just beyond its origin. The more superior right renal artery is also severely stenotic. A 3.4 cm abdominal aortic aneurysm is present with extensive mural thrombus. The right common, internal and external iliac systems are occluded. The right superficial femoral artery reconstitutes. Mild to moderate bilateral superficial femoral artery stenosis is present. Bilateral three-vessel trifurcations are moderately diseased with moderate stenosis at the origin of the celiac axis. Right renal cell carcinoma is present and a large left renal cyst also has a soft tissue nodule is also concerning. At least moderate centrilobular emphysema is present. His echo showed what is likely old inferior scarring but his troponin did go up to 0.58. He will be managed as an outpatien, 1st with urology and then with vascular and cardiology. He will quit smoking and is currently on a nicotine patch. He is startede on amlodipine, carvedilol, isosorbide and atorvastatin Patient History: FHx: arthritis G8 BROTHER 33 FATHER FHx: multiple myeloma 32 MOTHER Family history: Hypertension (situation) G8 BROTHER G8 BROTHER Disposition home CONDITION AT DISCHARGE: Stable Diet cardiac Scheduled Alprazolam (Xanax), 0.5 MG PO QID, (Reported) Amlodipine Besylate (Amlodipine Besylate), 10 MG PO DAILY Aspirin (Aspir-Low), 2 TAB PO DAILY, (Reported) Atorvastatin Calcium (Atorvastatin Calcium), 20 MG PO QHS Carvedilol (Carvedilol ), 6.25 MG PO BIDWMEALS Citalopram Hydrobromide (Celexa), 1 TAB PO DAILY, (Reported) Isosorbide Mononitrate (Isosorbide Mononitrate Er), 30 MG PO DAILY [Nicotine 21MG], 1 PATCH TD DAILY Scheduled PRN Hydrocodone/Acetaminophen (Lortab 7.5-325 mg Tablet), 1 TAB PO PRN Q6HRS PRN for PAIN, (Reported) Follow Up Dr. Koehler 1-2 weeks, cardiology on 09/21/19, he is given # for Dr. Mcgowan - urology and has vascular appt also Elizabeth CAIN MD Aug 21, 2019 17:43
== END 2019-08-21 18:00 | disposition home or self-care (01) | DRG 305 ==
LOC: ER 04:37 → 2 NORTH 06:37
PROVIDERS: ADMIT Family Medicine; ATTEND Family Medicine
DX: I16.9 Hypertensive crisis, unspecified (principal); C64.1 Malignant neoplasm of right kidney, except renal pelvis; E78.5 Hyperlipidemia, unspecified; F17.210 Nicotine dependence, cigarettes, uncomplicated; I10 Essential (primary) hypertension; I25.10 Atherosclerotic heart disease of native coronary artery without angina pectoris; I25.2 Old myocardial infarction; J43.2 Centrilobular emphysema; K21.9 Gastro-esophageal reflux disease without esophagitis; Z96.641 Presence of right artificial hip joint; F32.9 Major depressive disorder, single episode, unspecified; M19.90 Unspecified osteoarthritis, unspecified site; F41.9 Anxiety disorder, unspecified; Z79.82 Long term (current) use of aspirin; Z80.7 Family history of other malignant neoplasms of lymphoid, hematopoietic and related tissues; Z82.49 Family history of ischemic heart disease and other diseases of the circulatory system; Z85.46 Personal history of malignant neoplasm of prostate; Z85.47 Personal history of malignant neoplasm of testis; Z85.528 Personal history of other malignant neoplasm of kidney; I70.211 Atherosclerosis of native arteries of extremities with intermittent claudication, right leg
CPT/HCPCS: 36415; 71045; 74177; 75635; 80048; 80053; 80061; 81001; 82150; 83690; 83880; 84443; 84484; 85025; 85610; 90471; 90686; 93005; 93306; 93923; 96374; 99406; J0360; Q9967; 99285-25; G0378

== ENCOUNTER 2019-11-02 16:03 | Emergency (ER) | payer BC ==
[~2019-11-02] VITALS: Ht 182.9 cm; Wt 77.1 kg
[~2019-11-02 16:03] MED LIST changes: +AMLO10TA8 PO; +ATOR20TA58 PO; +CARV6.2511 PO; +ISOS30TA4 PO; +Nicotine 21MG TD
[2019-11-02] MEDS ORDERED: methylPREDNISolone SOD SUCC PF 125 MG/2 ML VIAL. IV STA (16:31)
[2019-11-02] MEDS ORDERED: IPRATRPIUM/ALBUTEROL 0.5/2.5MG 3 ML NEBU. NEB STA (16:31)
--- NOTE | 2019-11-02 16:46 | PHYS DOC ---
Past Medical History Past Medical History: Anxiety, Cancer, High Cholesterol, Hypertension, [place] Additional Past Medical Histor: kidney cancer, Past Surgical History: Other Additional Past Surgical Histo: PTCA, testicular cancer Alcohol Use: None Drug Use: None Adult General Chief Complaint Chief Complaint: SHORTNESS OF BREATH HPI HPI Patient is a 69 year old male who presents with shortness of breath has been ongoing for 3-4 days. Patient also has runny nose, congestion, cough, loss of appetite. Patient has flu shot on August 21. The patient states he does smoke. This was 85% on room air on arrival. The patient's only medical history states his asthma. The patient was placed on 2 L and went up to 95%. He Denies any fevers. Review of Systems Review of Systems Constitutional: Denies fever or chills [] Eyes: Denies change in visual acuity, redness, or eye pain [] HENT: Denies nasal congestion or sore throat [] Respiratory: Reports cough and shortness of breath [] Cardiovascular: No additional information not addressed in HPI [] GI: Denies abdominal pain, nausea, vomiting, bloody stools or diarrhea [] : Denies dysuria or hematuria [] Musculoskeletal: Denies back pain or joint pain [] Integument: Denies rash or skin lesions [] Neurologic: Denies headache, focal weakness or sensory changes [] Endocrine: Denies polyuria or polydipsia [] Complete systems were reviewed and found to be within normal limits, except as documented in this note. Current Medications Current Medications Current Medications Medications (Trade) Dose Ordered Sig/Mady Start Time Stop Time Status Last Admin Dose Admin Albuterol Sulfate (Ventolin Neb Soln) 10 mg 1X STAT 11/02/19 16:56 11/02/19 17:00 DC 11/02/19 17:41 10 MG Albuterol/ Ipratropium (Duoneb) 3 ml 1X STAT 11/02/19 16:31 11/02/19 16:35 DC 11/02/19 16:43 3 ML Magnesium Sulfate/ Dextrose 100 ml @ 100 mls/hr 1X STAT 11/02/19 16:56 11/02/19 17:55 DC 11/02/19 17:16 100 MLS/HR Methylprednisolone Sodium Succinate (SOLU-Medrol 125MG VIAL) 125 mg 1X STAT 11/02/19 16:31 11/02/19 16:35 DC 11/02/19 17:15 125 MG Allergies Allergies Allergies Coded Allergies Type Severity Reaction Last Updated Verified No Known Drug Allergies 09/11/16 No Physical Exam Physical Exam Constitutional: Well developed, well nourished, no acute distress, non-toxic appearance. [] HENT: Normocephalic, atraumatic, bilateral external ears normal, oropharynx moist, no oral exudates, nose normal. [] Eyes: PERRLA, EOMI, conjunctiva normal, no discharge. [] Neck: Normal range of motion, no tenderness, supple, no stridor. [] Cardiovascular:Heart rate regular rhythm, no murmur [] Lungs & Thorax: Bilateral breath sounds have diffuse expiratory wheezing. Skin: Warm, dry, no erythema, no rash. [] Neurologic: Alert and oriented X 3, normal motor function, normal sensory function, no focal deficits noted. [] Psychologic: Affect normal, judgement normal, mood normal. [] Current Patient Data Vital Signs Vital Signs Date Time Temp Pulse Resp B/P (MAP) Pulse Ox O2 Delivery O2 Flow Rate FiO2 11/02/19 16:45 91 Nasal Cannula 2.0 11/02/19 16:24 97.9 76 24 172/85 (114) 97.9 EKG EKG [] Radiology/Procedures Radiology/Procedures [][facility] [address] [place] [address] IMAGING REPORT Signed PATIENT: KAYCE PALOMINO ACCOUNT: [id number] : 1950 LOCATION: ER AGE: 69 SEX: M EXAM STATUS: REG ER ORD. PHYSICIAN: LORI BARROSO APRN REASON: shortness of breath PROCEDURE: CHEST PA & LATERAL Chest radiograph 11/02/2019 4:31 PM INDICATION: Shortness of breath COMPARISON: 08/20/2019 TECHNIQUE: Frontal and lateral views of the chest are provided. FINDINGS: The cardiomediastinal silhouette is within normal limits. There are no pleural effusions. There is no pulmonary vascular congestion. There is no pneumothorax. The lungs are clear. No significant osseous abnormality is identified. IMPRESSION: No acute cardiopulmonary process. Electronically signed by: Garcia Truong MD (11/02/2019 5:07 PM) [id number] DICTATED and SIGNED BY: GARCIA TRUONG MD DATE: 11/02/191706 Course & Med Decision Making Course & Med Decision Making Pertinent Labs and Imaging studies reviewed. (See chart for details) Will order Breathing treatment, chest x-ray, and steroids. After initial treatment patient was still wheezing. Ordered hour long treatment and magnesium Patient is feeling better after hour long treatment. Offered admission to patient he states he would rather try treatment at home. Will place on inhaler and course of steroids. Dragon Disclaimer Dragon Disclaimer This electronic medical record was generated, in whole or in part, using a voice recognition dictation system. Departure Departure Impression: Primary Impression: Bronchitis Additional Impression: Asthma exacerbation Disposition: HOME, SELF-CARE Condition: STABLE Referrals: LORI MABRY MD (PCP) Patient Instructions: Acute Bronchitis, Asthma Attacks, Prevention, Asthma Prevention-Brief, Asthma, Adult Additional Instructions: Thank you for visiting [facility]. We appreciate you trusting us with your care. If any additional problems come up don't hesitate to return to visit us. Please follow up with your primary care provider so they can plan additional care if needed and know about the problem that you had. If symptoms worsen come back to the Emergency Department. Any concerning symptoms that start such as chest pain, shortness of air, weakness or numbness on one side of the body, running high fevers or any other concerning symptoms return to the ER. Please fill your medications at any pharmacy and follow the prescription i nstructions. Scripts Albuterol Sulfate (PROAIR HFA INHALER) 8.5 Gm Hfa.aer.ad 2 PUFF IH PRN Q4-6HRS PRN for wheezing for 21 Days, #1 INHALER 0 Refills Prov: LORI BARROSO APRN 11/02/19 Prednisone (PREDNISONE) 20 Mg Tablet 1 TAB PO BID for 5 Days, #10 TAB Prov: LORI BARROSO APRN 11/02/19 Problem Qualifiers Additional Impression: Asthma exacerbation Asthma severity: moderate Asthma persistence: unspecified Qualified Codes: J45.901 - Unspecified asthma with (acute) exacerbation LORI BARROSO APRN Nov 02, 2019 16:46
[2019-11-02] MEDS ORDERED: MAGNESIUM SULFATE 1GM 100 ML IV STA (16:56)
[2019-11-02] MEDS ORDERED: ALBUTEROL SULFATE 2.5 MG/3 ML NEBU. CONT NEB STA (16:56)
--- NOTE | 2019-11-02 17:10 | RAD ---
Chest radiograph 11/02/2019 4:31 PM INDICATION: Shortness of breath COMPARISON: 08/20/2019 TECHNIQUE: Frontal and lateral views of the chest are provided. FINDINGS: The cardiomediastinal silhouette is within normal limits. There are no pleural effusions. There is no pulmonary vascular congestion. There is no pneumothorax. The lungs are clear. No significant osseous abnormality is identified. IMPRESSION: No acute cardiopulmonary process. Electronically signed by: Tamara Yepez MD (11/02/2019 5:07 PM) [id number]
[2019-11-02] MEDS ORDERED: ALBU2.5V8 IH (18:35)
[2019-11-02] MEDS ORDERED: PRED20TA PO (18:35)
[2019-11-02 18:44] VITALS: BP 129/56
== END 2019-11-02 19:11 | disposition home or self-care (01) ==
LOC: ER 16:03
DX: J45.901 Unspecified asthma with (acute) exacerbation (principal); I10 Essential (primary) hypertension; E78.00 Pure hypercholesterolemia, unspecified; I25.2 Old myocardial infarction; F41.9 Anxiety disorder, unspecified; F17.200 Nicotine dependence, unspecified, uncomplicated
CPT/HCPCS: 71046; 94640; 94644; 96365; 96375; 99285; J2930; J3475; J7613; J7620; 99284-25

== ENCOUNTER → 2019-12-04 | Outpatient (CLI) | payer BC ==
[2019-11-12 08:16] VITALS: BP 133/76
[~2019-12-04] MED LIST changes: +ALBU2.5V8 IH; +PRED20TA PO; +REGADENOSON 0.4 MG/5 ML DISP.SYRIN. IV ONE
--- NOTE | 2019-12-04 13:37 | RAD ---
MR#: [id number] Date of Study: 12/04/2019 Ordering Physician: LAKESHA HESS, Referring Physician: HERBIE MART Tech: RT Pascual (R) (N) APPROVED REPORT Test Type: Pharmacological Stress Nurse/Tech: RT Pascual (R) (N) Test Indications: CAD, Preop clearance Cardiac History: COPD, smoker Medications: See Electronic Medical Record Medical History: See Electronic Medical Record Resting ECG: SR Resting Heart Rate: 55 bpm Resting Blood Pressure: 145/72mmHg Pretest Chest Pain: No chest pain Nurse/Tech Notes Lungs CTA, S1S2 Pharm. Details Pharmacologic stress testing was performed using 0.4mg per 5ml of regadenoson given intravenously ove r 7-10 seconds. Stress Symptoms No chest pain or symptoms. POST EXERCISE Reason for Termination: Infusion complete Max Blood Pressure: 135/67mmHg Blood Pressure response to exercise: Normal blood pressure response during stress. Heart Rate response to exercise: Normal response Chest Pain: No. Arrhythmia: No. ST Change: No. INTERPRETATION Stress EKG Conclusion: Baseline EKG showed sinus rhythm. No ischemic changes at peak stress. No arr hythmias. Imaging Protocol IMAGE PROTOCOL: Rest Tc-99m/stress Tc-99m 1 day Rest: Stress: Viability: Radiopharm.Tc99m EdzrwcftlIo25n Sestamibi [id number] 33mCi Duration 15min. 15min. Img Date 12/04/2019 12/04/2019 Inj-Img Zijs96pte. 60min. Rest Admin Site:IV - Right AntecubitalAdministrator:KOURTNEY Alvarez, ARRT (R)(N) Stress Admin Site: IV - Right AntecubitalAdministrator: RT Toshia GarnerR)(N) STRESS DATA End Diast. Vol.152.0mlAv. Heart Rate64.0bpm LVEDV index BSA77.0mlCardiac Output0.0L/min End Syst. Vol.57.0mlCO Index BSA0.0L/min LVESV index BSA29.0mlMyocardial Hett800.0g Eject. Urkjjvfa88.0% Stress Scores Regional WT0.00Summed WT9.00 Regional WM0.00Summed WM4.00 LV Perfusion Scintigraphic images showed fixed inferior wall defect most probably diaphragmatic attenuation artifa ct based on normal wall motion. No other fixed or reversible defects were seen. Wall Motion Normal left ventricle systolic function with ejection fraction calculated at 63%. LV Perf. Quant 17 Seg. SSS11.00 17 Seg. SRS16.00 17 Seg. SDS2.00 Stress Defect Extent (% LAD)15.00Rest Defect Extent (% LAD)16.30Rev. Defect Extent (% LAD)3.80 Stress Defect Extent (% LCX) 41.30Rest Defect Extent (% LCX)36.30Rev. Defect Extent (% LCX)7.50 Stress Defect Extent (% RCA)20.00Rest Defect Extent (% RCA)43.30Rev. Defect Extent (% RCA)0.00 Stress Defect Extent (% DANIELLE)23.30Rest Defect Extent (% DANIELLE)33.00Rev. Defect Extent (% DANIELLE)4.60 Conclusion 1. Regadenoson cardioisotope stress test showed diaphragmatic attention artifact without any definite evidence for ischemia or infarct. 2. Normal left ventricular systolic function with ejection fraction calculated at 63%. 3. Low risk for cardiac events. Signed by : Henry Felipe, Electronically Approved : 12/04/2019 13:36:58
== END | disposition home or self-care (01) ==
LOC: NM 09:29
PROVIDERS: ATTEND Internal Medicine Cardiovascular Disease
DX: Z01.810 Encounter for preprocedural cardiovascular examination (principal); I25.10 Atherosclerotic heart disease of native coronary artery without angina pectoris; J44.9 Chronic obstructive pulmonary disease, unspecified; F17.200 Nicotine dependence, unspecified, uncomplicated
CPT/HCPCS: 78452; 93017; A9500; J2785

== ENCOUNTER → 2020-11-22 | Outpatient (CLI) | payer BC ==
[2019-11-12 08:16] VITALS: BP 133/76
[~2020-11-22] MED LIST changes: +AMLO-187 PO; -AMLO10TA8 PO; -ISOS30TA4 PO; +ISOS30TA68 PO; -REGADENOSON 0.4 MG/5 ML DISP.SYRIN. IV ONE
--- NOTE | 2020-11-22 15:45 | KCIC ---
EXAM: CHEST 2 VIEWS. HISTORY: Renal neoplasm. COMPARISON: 11/10/2019. FINDINGS: Frontal and lateral views of the chest are obtained. There are no confluent infiltrates or suspicious nodules. There is no pneumothorax or pleural effusio n. The heart is not enlarged. IMPRESSION: 1. No evidence of metastatic disease by radiographs. CT is more sensitive if there is persistent conc jamison. Electronically signed by: Lazaro Uriostegui MD (11/22/2020 3:42 PM) [id number]
== END ==
LOC: KCIC 13:55
PROVIDERS: ATTEND Urology
DX: C64.1 Malignant neoplasm of right kidney, except renal pelvis (principal); F17.200 Nicotine dependence, unspecified, uncomplicated
CPT/HCPCS: 71046